=== PATIENT | female | born 1955 | race Caucasian/White ===

== ENCOUNTER → 2019-11-05 09:50 | Outpatient (CLI) | payer OTHER, SELFPAY ==
--- NOTE | ~2019-11-05 | MR_ITS ---
EXAMINATION: MR lumbar spine wo con EXAM DATE: 11/05/2019 10:28 INDICATION: Low back pain and right leg pain. TECHNIQUE: Multi-sequential, multiplanar MR images of the lumbar spine were obtained without contrast . Sagittal T1, T2, T2 fat saturation images. Axial T2 weighted images. Comparison is made to prior examination from 03/11/2015. FINDINGS: There is moderate disc disease at T11-12 and T12-L1 and L3-4, mild to moderate at the other lumbar levels. The conus medullaris terminates at the L1 level and has normal signal intensity and m orphology. There is 3 mm anterolisthesis L4 on L5. Small hemangioma in the S1 segment. Paraspinal so ft tissue is unremarkable. Level by level evaluation: T11-12: There is a large diffuse disc bulge asymmetric to the right, indenting the right anterior as pect of spinal cord without cord edema. Also central extrusion heading both inferiorly and superiorly . Facet arthropathy: Mild. Neural foraminal stenosis: No stenosis. Central canal stenosis: Mild to moderate. T12-L1: There is a moderate diffuse disc bulge. Facet arthropathy: Mild. Neural foraminal stenosis: No stenosis. Central canal stenosis: Mild. L1-L2: There is a moderate diffuse disc bulge. Facet arthropathy: Mild to moderate. Neural foraminal stenosis: Mild right. Central canal stenosis: Mild. L2-L3: There is a mild to moderate diffuse disc bulge. Facet arthropathy: Mild to moderate. Neural foraminal stenosis: Minimal bilateral. Central canal stenosis: Mild. L3-L4: There is a mild to moderate diffuse disc bulge. Facet arthropathy: Mild. Neural foraminal stenosis: Mild right. Central canal stenosis: Mild. L4-L5: There is a mild to moderate diffuse disc bulge. Facet arthropathy: Mild to moderate. Neural foraminal stenosis: Mild bilateral. Central canal stenosis: Mild to moderate. L5-S1: There is a mild diffuse disc bulge. Facet arthropathy: Mild to moderate. Neural foraminal stenosis: Mild to moderate bilateral. Central canal stenosis: Mild to moderate. Difficult to appreciate any significant interval change compared to prior study. IMPRESSION: 1. Overall moderate lumbar spondylosis. Reviewed, dictated and finalized at location A.
== END ==
PROVIDERS: Visit Provider Physical Medicine & Rehabilitation Pain Medicine
DX: M47.26 Other spondylosis with radiculopathy, lumbar region (principal)
CPT/HCPCS: 72148

== ENCOUNTER 2021-04-01 13:33 | Outpatient (CLI) | payer OTHER, SELFPAY ==
--- NOTE | ~2021-04-01 | MR_ITS ---
EXAMINATION: MR lumbar spine wo con DATE: 04/01/2021 14:26 INDICATION: Low back pain. TECHNIQUE: Magnetic resonance imaging (MRI) of the lumbar spine was performed without intravenous con trast. Sequences included sagittal T2-weighted FSE, sagittal T2-weighted FS FSE, sagittal T1-weighted FSE, and axial T2-weighted FSE. COMPARISON: Lumbar spine MRI 11/05/2019, chest CT 02/14/2017 FINDINGS: There is 9 degrees levocurvature of thoracolumbar spine. There is 3 mm anterolisthesis of L 4 on L5 and L5 on S1. There is mild chronic anterior wedging of T10 vertebral body. There is moderate ly decreased disc height from T12-L1 through L2-L3, severely decreased disc height at L3-L4, moderate ly decreased disc height at L4-L5, and mildly decreased disc height at L5-S1. There is a hemangioma i n S1. The distal spinal cord signal intensity is normal. The conus medullaris is at L1. The following disc levels are specifically discussed: T11-T12: The disc is bulging with superimposed left central extrusion. There is no facet joint osteoa rthritis. There is mild left neural foraminal stenosis. There is mild central canal stenosis with liat tral indentation of the spinal cord. T12-L1: The disc is bulging with superimposed right central extrusion. There is mild bilateral facet joint osteoarthritis. There is mild right neural foraminal stenosis. There is mild central canal sten osis. L1-L2: The disc is bulging and has an annular fissure. There is mild bilateral facet joint osteoarthr itis. There is mild bilateral neural foraminal stenosis. There is mild central canal stenosis. L2-L3: The disc is bulging and has an annular fissure. There is mild bilateral facet joint osteoarthr itis. There is mild bilateral neural foraminal stenosis. There is mild central canal stenosis. L3-L4: The disc is bulging with superimposed left subarticular zone extrusion with mass effect on lef t L4 nerve root in left lateral recess. There is mild bilateral facet joint osteoarthritis. There is mild bilateral neural foraminal stenosis. There is mild central canal stenosis. There is moderate nolberto nosis of left lateral recess. L4-L5: The disc is bulging and has an annular fissure. There is mild right facet joint osteoarthritis . There is ankylosis of left facet joint with moderate hypertrophy. There is mild left neural foramin al stenosis. There is mild central canal stenosis. L5-S1: The disc does not extend beyond the endplate margin. There is severe bilateral facet joint ost eoarthritis. There is mild bilateral neural foraminal stenosis. There is no central canal stenosis. IMPRESSION: 1. Severe lumbar spondylosis with worsened extrusion at L3-L4. Reviewed, dictated and finalized at location D. [employer]
== END 2021-04-01 13:34 | disposition home or self-care (01) ==
PROVIDERS: PCP Internal Medicine; Visit Provider Physician Assistant Medical
DX: M47.896 Other spondylosis, lumbar region (principal); M51.26 Other intervertebral disc displacement, lumbar region
CPT/HCPCS: 72148

== ENCOUNTER 2023-11-24 07:33 | Outpatient (CLI) | payer OTHER, SELFPAY ==
--- NOTE | ~2023-11-24 | CT_ITS ---
EXAMINATION: CT abdomen pelvis w con DATE: 11/24/2023 08:21 INDICATION: Abdominal pain TECHNIQUE: Computed tomography (CT) of the abdomen and pelvis was performed with 100 mL Omnipaque-350 intravenous contrast. Automated exposure control and iterative reconstruction technique were employe d. The dose-length product was 1514.43 mGy-cm. COMPARISON: 07/20/2014 FINDINGS: Lung bases are clear. Heart size normal. No pericardial or pleural effusion. Liver, gallbladder, sple en, pancreas and bilateral adrenal glands are normal. Small bilateral renal cysts largest on the left measuring 1.2 cm. There is moderate colonic diverticulosis with a sigmoid predominance. There is no adjacent inflammatory change to suggest diverticulitis. No bowel obstruction. The appendix is not vi sualizedand may be surgically absent with possible small appendiceal stump at the tip of the cecum. N o pericecal inflammatory change to suggest acute appendicitis. Bladder, anteverted uterus and bilater al adnexa are unremarkable. No free intraperitoneal gas or fluid. No pathologically enlarged abdomina l or pelvic lymphadenopathy. Severe lumbar spondylosis. IMPRESSION: 1. Moderate diverticulosis. No acute intra-abdominal/pelvic process. Reviewed, dictated and finalized at location A.
[2023-11-24 08:15] LABS: Estimated Glomerular Filt Rate > 60
== END 2023-11-24 07:34 | disposition home or self-care (01) ==
PROVIDERS: PCP Physician Assistant Medical; Visit Provider Physician Assistant Medical
DX: R10.9 Unspecified abdominal pain (principal); K57.30 Diverticulosis of large intestine without perforation or abscess without bleeding
CPT/HCPCS: 74177; Q9967

== ENCOUNTER 2024-01-27 10:50 | Outpatient (CLI) | payer OTHER, SELFPAY ==
--- NOTE | ~2024-01-27 | MR_ITS ---
EXAMINATION: MR ankle RT wo con DATE: 01/27/2024 11:34 INDICATION: Posterior tibial tendinitis, right leg. Right ankle pain. TECHNIQUE: Magnetic resonance imaging (MRI) of the right ankle was performed without intravenous cont rast. Sequences included sagittal PD-weighted FS FSE, sagittal PD-weighted FSE, coronal PD-weighted F S FSE, coronal PD-weighted FSE, axial PD-weighted FS FSE, and axial PD-weighted FSE. COMPARISON: None. FINDINGS: Medial ankle ligaments: There is thickening and increased signal involving the superficial component of deltoid ligament. The deep component of the deltoid ligament is obliterated by arthritis. Lateral ankle ligaments: There are changes of prior lateral ankle sprain. Anterior talofibular ligament demonstrates at least partial tear and heterotopic ossification. There is thickening and increased signal involving calcane ofibular ligament. Posterior talofibular ligament is intact. There is thickening and increased signal involving anterior and posterior tibiofibular ligaments with heterotopic ossification of anterior ti biofibular ligament. Tendons: There is mild peroneus longus tendinopathy. The anterior and medial ankle tendons are normal. Dolores s tendon is normal. Plantar fascia: There is thickening of central band of the plantar fascia, consistent with fasciitis. There is an ent hesophyte at the calcaneal attachment. Bones/other: There is severe osteoarthritis of tibiotalar joint with full-thickness cartilage loss, osteophytes, a nd edema-like marrow signal intensity. There is severe osteoarthritis of second tarsometatarsal joint and mild to moderate osteoarthritis of some of the other midfoot joints. Fluid: There are small ankle and subtalar joint effusions. IMPRESSION: 1. Normal posterior tibial tendon. 2. 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 Reviewed, dictated and finalized at location A. IMPRESSION: 1. Normal posterior tibial tendon. 2. Polyarticular osteoarthritis, severe at the ankle joint and second tarsometa tarsal joint.
== END 2024-01-27 10:51 | disposition home or self-care (01) ==
LOC: MICIMG 10:51
PROVIDERS: PCP Physician Assistant Medical; Visit Provider Orthopaedic Surgery
DX: M76.821 Posterior tibial tendinitis, right leg (principal); M19.071 Primary osteoarthritis, right ankle and foot
CPT/HCPCS: 73721

== ENCOUNTER 2024-05-01 09:48 | Outpatient (CLI) | payer OTHER, SELFPAY ==
--- NOTE | ~2024-05-01 | CT_ITS ---
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 Dose reduction technique was used on this scan by utilizing automated exposu re control and iterative reconstruction technique. The dose-length product (DLP) was 569.77 mGy-cm. Findings: There is no evidence of any significant mediastinal, hilar or axillary lymphadenopathy. There is evid ence of prior left axillary judd dissection. There is a tiny subcutaneous nodule near the place bein g measuring 4 mm, which could reflect a tiny sebaceous cyst. There is no filling defect in the pulmon andres arterial tree to suggest pulmonary embolus. There is no evidence of aortic dissection or aneurysm . There is no evidence of pleural or pericardial effusion. The lungs are clear. No pulmonary nodules or infiltrates are noted. Images through the upper abdomen reveal diffuse hepatic steatosis. Impression: 4 mm probable sebaceous cyst at the left axillary region at the location of the BB. Prior axillary judd dissection. No suspicious mass lesion identified. Clear lungs. Reviewed, dictated and finalized at location M. [employer] Impression: 4 mm probable sebaceous cyst at the left axillary region at the location of the BB. Prior axillary judd dissection. No suspicious mass lesion identified. Clear lungs.
--- NOTE | ~2024-05-01 | CT_ITS ---
EXAMINATION: CT ankle RT wo con DATE: 05/01/2024 10:30 INDICATION: Pain in right ankle and joints of right foot. TECHNIQUE: Computed tomography (CT) of the right ankle was performed without intravenous contrast. Au tomated exposure control and iterative reconstruction technique were employed. The dose-length produc t was 182.36 mGy-cm. COMPARISON: Right ankle MRI 01/27/2024, right foot radiograph 09/21/2023 FINDINGS: There is moderate hallux valgus. No fracture. There is severe osteoarthritis of ankle joint and mild osteoarthritis of subtalar joint and some of the midfoot joints. There is moderate osteoart hritis of fourth tarsometatarsal joint. There is severe osteoarthritis of second tarsometatarsal join t and first metatarsophalangeal joint. IMPRESSION: 1. Polyarticular osteoarthritis. 2. Moderate hallux valgus. Reviewed, dictated and finalized at location A. 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
[2024-05-01 10:14] LABS: Estimated Glomerular Filt Rate 55
== END 2024-05-01 09:49 | disposition home or self-care (01) ==
LOC: MICIMG 09:49
PROVIDERS: PCP Physician Assistant Medical; Visit Provider Physician Assistant Medical
DX: M19.071 Primary osteoarthritis, right ankle and foot (principal); M20.11 Hallux valgus (acquired), right foot
CPT/HCPCS: 71260; 73700; Q9967

== ENCOUNTER 2024-05-28 03:05 | Day surgery (SDC) | payer OTHER, SELFPAY ==
[2024-05-14 11:24] VITALS: BMI 42.8
--- OUTSIDE RECORDS SUMMARY | 2024-05-28 03:09 | XMS_ITS | Clinical Summary ---
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 Gender Identity Not on file Sexual Orientation Not on file Plan of Treatment Health Maintenance Due Date Last Done Comments DTAP/TDAP/TD VACCINES (1 - Tdap) 02/12/1975 BREAST CANCER SCREENING 1996 COLORECTAL SCREENING 02/12/2001 Colorectal Cancer Screening 02/12/2001 FIT-DNA Q 3 years 02/12/2001 FIT/FOBT Q 1 year 02/12/2001 Flex Sig/CT Colonography Q 5 years 02/12/2001 PNEUMOCOCCAL VACCINE 65+ YEARS (1 of 1 - PCV) 02/13/20 06 ZOSTER VACCINE (1 of 2) 02/12/2006 OSTEOPOROSIS SCREENING 02/12/2021 INFLUENZA VACCINE (#1) 2023 RSV VACCINE (60+ or ) (1 - 1-dose 75+ series) 02/12/2031 Care Teams Assistant Media Buyer Relationship Specialty Start Date [facility] [address] [id number] PCP - General 06/26/10
--- OUTSIDE RECORDS SUMMARY | 2024-05-28 03:09 | XMS_ITS | Referral Summary ---
Author Organization [facility] [address] Address [address] [place] [address] Care Team Providers Care Bait Man Name Role Phone Alessandro Delaney MD Unavailable [phone] Elaine Bunn Primary Care Provider [phone] Encounters Date Type Department Care Team Description 05/08/2024 Orders Only [facility] Orthopaedic Surgery [address] [place] [address] 2nd [address] [place] [address] Liset Campuzano RMA 05/02/2024 8:12 AM [employer] - 05/02/2024 11:59 PM [employer] Hospital Encounter [facility] ([facility]) [address] [place] [address] Diagnosis unknown Discharge Disposition: Discharge to home or self care 05/02/2024 8:03 AM [employer] - 05/02/2024 11:59 PM [employer] Hospital Encounter [facility] ([facility]) [address] [place] [address] Diagnosis unknown Discharge Disposition: Discharge to home or self care 05/02/2024 8:30 AM [employer] Office Visit [facility] Orthopaedic Surgery [address] [place] [address] 2nd [address] [place] [address] Jeferson Schneider MD Primary osteoarthritis, unspecified ankle and foot (Primary Dx); Pain in joint involving ankle and foot, unspecified laterality 04/25/2024 Telephone [facility] Orthopaedic Surgery [address] [place] [address] 2nd [address] [place] [address] Estrella Dhaliwal RN 04/25/2024 Orders Only [facility] Orthopaedic Surgery [id number] [place] [address] 2nd [address] [place] [phone] Jeferson Schneider MD Pain in joint involving ankle and foot, unspecified laterality (Primary Dx) 04/05/2024 1:30 PM [employer] Office Visit [facility] [address] [facility] [address] [facility] [place] [address] Alessandro Delaney MD Type 2 diabetes mellitus without complication, without long-term current use of insulin (CMS/HCC) (HCC) (Primary Dx); Mixed hyperlipidemia; Primary hypothyroidism; Essential hypertension; Vitamin D deficiency, unspecified 03/19/2024 6:36 PM [employer] - 03/19/2024 11:59 PM [employer] Hospital Encounter [facility] [address] [place] [address] Discharge Disposition: Discharge to home or self care 03/19/2024 10:57 AM [employer] - 03/19/2024 11:59 PM [employer] Hospital Encounter [facility] [address] [place] [address] Right foot pain Discharge Disposition: Discharge to home or self care 03/19/2024 11:00 AM [employer] - 03/19/2024 11:59 PM [employer] Hospital Encounter [facility] [address] [place] [address] Pain in joint involving ankle and foot, unspecified laterality Discharge Disposition: Discharge to home or self care 03/19/2024 11:00 AM [employer] Office Visit [facility] Orthopaedic Surgery [address] [place] [address] 2nd [address] [place] [phone] Jeferson Schneider MD Pain in joint involving ankle and foot, unspecified laterality (Primary Dx); Right foot pain; Primary osteoarthritis, unspecified ankle and foot from Last 3 Months Allergies Active Allergy Reactions Criticality Noted Date Comments Ibuprofen Shortness of breath High 02/14/2019 Meloxicam Shortness of breath High 11/28/2020 Naproxen Shortness of breath High 02/14/2019 Penicillins Rash High 02/14/2019 Medications montelukast (SINGULAIR) 10 mg tablet Take 1 tablet (10 mg total) by mouth daily 1 Active hydroCHLOROthia zide (HYDRODIURIL) 12.5 mg tablet Take 1 tablet (12.5 mg total) by mouth daily 1 Active moexipriL (UNIVASC) 7.5 mg tabletIndicatio ns:hypertension Take 2 tablets (15 mg total) by mouth daily 1 Active omeprazole (PriLOSEC) 20 mg capsule TAKE ONE CAPSULE BY MOUTH ONCE DAILY DIRECTED 1 Active PARoxetine (PAXIL) 20 mg tablet Take 1 tablet (20 mg total) by mouth daily 1 Active pilocarpine (SALAGEN) 5 mg tablet Take 1 tablet (5 mg total) by mouth 2 (two) times a day 1 Active acetaminophen (TYLENOL) 500 mg tablet Take 2 tablets (1,000 mg total) by mouth 2 (two) times a day Active HYDROcodone-cherry taminophen (NORCO) 5-325 mg per tabletIndicatio ns:Pain Take 1 tablet by mouth 3 (three) times a week Active levothyroxine (SYNTHROID) 125 mcg tablet Take 1 tablet (125 mcg total) by mouth 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 200 each 3 4 Active Additional Information Patient not taking.Reported on 04/05/2024 linaGLIPtin (TRADJENTA) 5 mg tabletIndicatio ns:type 2 diabetes mellitus Take 1 tablet (5 mg total) by mouth daily 90 tablet 3 4 11/02/19 25 Active losartan (COZAAR) 50 mg tablet Take 1 tablet (50 mg total) by mouth daily 4 Active atorvastatin (LIPITOR) 20 mg tablet Take 1 tablet (20 mg total) by mouth nightly at bedtime 4 Active polyethylene glycol (MIRALAX) 17 gram/dose bulk powder Take 17 g by mouth daily Active blood glucose diagnostic (Contour Next Test Strips) strip Test blood sugar twice daily 200 each 3 5 Active predniSONE (DELTASONE) 10 mg tablet TAKE 3 TABLETS DAILY FOR 3 DAYS, THEN 2 TABLETS DAILY FOR 3 DAYS, THEN 1 TABLET DAILY FOR 3 DAYS 5 Active Active Problems Problem Noted Date Diagnosed Date Acquired deformity of right ankle and foot 05/15 Chronic right sacroiliac pain 11/28/2020 Chronic right-sided low back pain with sciatica 11/28/2020 Type 2 diabetes mellitus wit hout complication, without long-term current use of insulin ([facility]) 07/03/2020 Overview (07/03/2020): Continue SGLT2 Essential hypertension 07/03/2020 Overview (07/03/2020): Same meds Mixed hyperlipidemia 07/03/2020 Overview (07/03/2020): Same meds Primary hypothyroidism 07/03/2020 Overview (07/03/2020): Check labs Social History Tobacco Use Types Packs/Day Years Used Date Smoking Tobacco: Never Smokeless Tobacco: Never AUDIT-C Answer Date Recorded Q1: How often do you have a drink containing alc ohol? Never 04/02/2021 Q2: How many drinks containi ng alcohol do you have on a typical day when you are drinking? 1 or 2 04/02/2021 Frequency of Binge Drinking Not on file 03/06 Comments No Sex and Gender Information Value Date Recorded Sex Assigned at Not on file Legal Sex Female 1:58 PM [employer] Gender Identity Not on file Sexual Orientation Not on file Last Filed Vital Signs Vital Sign Reading Time Taken Comments Blood Pressure 144/94 04/05/2024 1:51 PM [employer] Pulse 89 04/05/2024 1:51 PM [employer] Temperature 36.5 C (97.7 F) 09/14/2021 1:00 PM CDT Respiratory Rate 18 09/14/2021 1:55 PM CDT Oxygen Saturation 96% 04/05/2024 1:51 PM [employer] Inhaled Oxygen Concentration - - Weight 117 kg (258 lb) 04/05/2024 1:51 PM [employer] Height 162.6 cm (5' 4 ) 04/05/2024 1:51 PM [employer] Body Mass Index 44.29 04/05/2024 1:51 PM [employer] Plan of Treatment Upcoming Encounters Date Type Department Care Team (Late st Contact Info) Description 11/20/2024 Hospital Encounter [facility] Operating Room [facility]) [facility] [place] [address] [place] [address] [place] [address] Scheduled Procedures Name Priority Associated Diagnoses Date/Ti me ARTHRODESIS TRIPLE - FOOT Acquired deformity of right ankle and foot BONE GRAFT - ILIAC CREST Acquired deformity of right ankle and foot LENGTHENING TENDON - ACHILLES Acquired deformity of right ankle and foot OSTEOTOMY COTTON Acquired deformity of right ankle and foot Goals Goal Patient Goal Type Associated Problems Recent Progress Patient-Stated? Author CCM Chronic Pain Care Plan Chronic Care Management No change(01/27 7:40 AM CDT) No Ethel Bonilla RN Note: Problem: Chronic Pain Goals: 1. Minimize further functional decline 2. Maximize quality of life 3. Control pain Strategies: - Activity/exercise program recommendation - Conservative stepwise pain medicine strategy with multi-disciplinary approach - Recommend healthy lifestyle strategies and compensatory methods as needed Procedures Procedure Name Priority Date/Time Associated Diagnosis Comments MSK CT OUTSIDE CONSULT Routine 05/02/2024 8:12 AM [employer] Diagnosis unknown MSK MR OUTSIDE CONSULT Routine 05/02/2024 8:03 AM [employer] Diagnosis unknown VITAMIN D 25 HYDROXY Routine 04/23/2024 11:12 AM [employer] COPY(IES) SENT TO: Routine 04/23/2024 11:12 AM [employer] TSH Routine 04/23/2024 11:12 AM [employer] Type 2 diabetes mellitus without complication, without long-term current use of insulin ([facility]) (HCC) Mixed hyperlipidemia Primary hypothyroidism Essential hypertension Vitamin D deficiency, unspecified T4, FREE Routine 04/23/2024 11:12 AM [employer] Type 2 diabetes mellitus without complication, without long-term current use of insulin ([facility]) ([facility]) Mixed hyperlipidemia Primary hypothyroidism Essential hypertension Vitamin D deficiency, unspecified COMPREHENSIVE METABOLIC PANEL Routine 04/23/2024 11:12 AM [employer] Type 2 diabetes mellitus without complication, without long-term current use of insulin ([facility]) ([facility]) Mixed hyperlipidemia Primary hypothyroidism Essential hypertension Vitamin D deficiency, unspecified CBC WITH AUTO DIFFERENTIAL Routine 04/23/2024 11:12 AM [employer] Type 2 diabetes mellitus without complication, without long-term current use of insulin ([facility]) ([facility]) Mixed hyperlipidemia Primary hypothyroidism Essential hypertension Vitamin D deficiency, unspecified POCT HEMOGLOBIN A1C Routine 04/05/2024 2 :01 PM [employer] Type 2 diabetes mellitus without complication, without long-term current use of insulin ([facility]) ([facility]) MSK MR OUTSIDE REFERENCE Routine 03/19/2024 6:36 PM [employer] XR FOOT RIGHT 3 OR MORE VIEWS Schedule Routine, Read Routine (OP Routine) 03/19/2024 11:08 AM [employer] Right foot pain XR ANKLE RIGHT 3 OR MORE VIEWS Schedule Routine, Read Routine (OP Routine) 03/19/2024 11:08 AM [employer] Pain in joint involving ankle and foot, unspecified laterality POCT LIPID PANEL Routine 07/03/2020 9:33 AM CDT Mixed hyperlipidemia from Last 3 Months or Most Recently Relevant to Health Maintenance Results * MSK CT Outside Consult (05/02/2024 8:12 AM [employer]) Anatomical Region Laterality Modality N/A Computed Tomogra phy 05/02/2024 10:2 1 AM [employer] Impressions 05/02/2024 11:22 AM [employer] Severe right pes planovalgus with severe tibiotalar osteoarthritis, mild to moderate hindfoot osteoarthritis, and moderate midfoot osteoarthritis worst at the 2nd and 3rd tarsometatarsal joints. The findings, conclusions and recommendations within this report do not replace the initial findings, conclusions and recommendations made at the facility where the study was performed based upon the imaging and clinical condition at that time. Comparison with the prior report and clinical history is necessary. The provided images may or may not represent the [place] source data set and thus may contain changes that may lower the accuracy of this second-opinion interpretation. Dictated by: Alessandro Sharma D.O. The radiology attending physician has personally reviewed this study, and had reviewed and/or edited this written report and agrees with it. Electronically signed by: Sean Mendoza M.D. Narrative 05/02/2024 11:22 AM [employer] EXAMINATION: RADIOLOGY CONSULTATION ON OUTSIDE IMAGING STUDY STUDY INITIALLY PERFORMED: 05/01/2024 at [facility]. TYPE OF STUDY: Multiple CT images of the right ankle and hindfoot without contrast are provided at the time of this interpretation. CONTRAST ROUTE: No contrast was administered. The protocol was adequate to address the clinical question. The outside final report was not available at the time of this second opinion interpretation. TYPE OF CONSULTATION: Consult on outside imaging study with images submitted through Outside Image Sharing Service DATE OF CONSULTATION: 05/02/2024 10:03 AM HISTORY: Severe osteoarthritis, surgical planning COMPARISON: Radiographs 03/19/2024, outside MRI 01/27/2024 FINDINGS: Severe pes planovalgus. Hypu-jy-nrlz articulation of the tibiotalar joint with subchondral cysts and sclerosis. Loss of the medial clear space with rcmq-kb-jteu articulation between the medial talus and medial malleolus. Osteophytes and heterotopic ossification about the tibiotalar joint and malleoli. Small tibiotalar posterior subtalar joint effusions with a few loose bodies, largest measuring up to 13 mm in the flexor hallucis longus tendon sheath near its communication with the posterior tibiotalar joint. Mild to moderate subtalar osteoarthritis. Mild talonavicular and calcaneocuboid osteoarthritis. Polyarticular midfoot osteoarthritis, moderate at the 2nd and 3rd tarsometatarsal joint with small subchondral cysts. Severe 1st tarsometatarsal osteoarthritis with hallux valgus noted on prior radiographs. Plantar calcaneal spur. No acute fracture. Visualized tendons are grossly intact. No soft tissue collection. 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 Procedure Note Sean Mendoza MD - 05/02/2024 EXAMINATION: RADIOLOGY CONSULTATION ON OUTSIDE IMAGING STUDY STUDY INITIALLY PERFORMED: 05/01/2024 at [facility]. TYPE OF STUDY: Multiple CT images of the right ankle and hindfoot without contrast are provided at the time of this interpretation. CONTRAST ROUTE: No contrast was administered. The protocol was adequate to address the clinical question. The outside final report was not available at the time of this second opinion interpretation. TYPE OF CONSULTATION: Consult on outside imaging study with images submitted through Outside Image Sharing Service DATE OF CONSULTATION: 05/02/2024 10:03 AM HISTORY: Severe osteoarthritis, surgical planning COMPARISON: Radiographs 03/19/2024, outside MRI 01/27/2024 FINDINGS: Severe pes planovalgus. Pluw-pe-kfyd articulation of the tibiotalar joint with subchondral cysts and sclerosis. Loss of the medial clear space with bztw-la-bswu articulation between the medial talus and medial malleolus. Osteophytes and heterotopic ossification about the tibiotalar joint and malleoli. Small tibiotalar posterior subtalar joint effusions with a few loose bodies, largest measuring up to 13 mm in the flexor hallucis longus tendon sheath near its communication with the posterior tibiotalar joint. Mild to moderate subtalar osteoarthritis. Mild talonavicular and calcaneocuboid osteoarthritis. Polyarticular midfoot osteoarthritis, moderate at the 2nd and 3rd tarsometatarsal joint with small subchondral cysts. Severe 1st tarsometatarsal osteoarthritis with hallux valgus noted on prior radiographs. Plantar calcaneal spur. No acute fracture. Visualized tendons are grossly intact. No soft tissue collection. 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 IMPRESSION: Severe right pes planovalgus with severe tibiotalar osteoarthritis, mild to moderate hindfoot osteoarthritis, and moderate midfoot osteoarthritis worst at the 2nd and 3rd tarsometatarsal joints. The findings, conclusions and recommendations within this report do not replace the initial findings, conclusions and recommendations made at the facility where the study was performed based upon the imaging and clinical condition at that time. Comparison with the prior report and clinical history is necessary. The provided images may or may not represent the [place] source data set and thus may contain changes that may lower the accuracy of this second-opinion interpretation. Dictated by: Alessandro Sharma D.O. The radiology attending physician has personally reviewed this study, and had reviewed and/or edited this written report and agrees with it. Electronically signed by: Sean Mendoza M.D. us Jeferson Schneider MD IMG CT PROCEDURES Dorinda l Result * MSK MR Outside Consult (05/02/2024 8:03 AM [employer]) Anatomical Region Laterality Modality N/A Magnetic Resonan ce 05/02/2024 10:1 8 AM [employer] Impressions 05/02/2024 11:23 AM [employer] Severe right pes planovalgus with severe tibiotalar osteoarthritis, mild to moderate hindfoot osteoarthritis, moderate to severe midfoot osteoarthritis, and mild insertional tendinopathy of the posterior tibialis tendon. The findings, conclusions and recommendations within this report do not replace the initial findings, conclusions and recommendations made at the facility where the study was performed based upon the imaging and clinical condition at that time. Comparison with the prior report and clinical history is necessary. The provided images may or may not represent the [place] source data set and thus may contain changes that may lower the accuracy of this second-opinion interpretation. Dictated by: Alessandro Sharma D.O. The radiology attending physician has personally reviewed this study, and had reviewed and/or edited this written report and agrees with it. Electronically signed by: Sean Mendoza M.D. Narrative 05/02/2024 11:23 AM [employer] EXAMINATION: RADIOLOGY CONSULTATION ON OUTSIDE IMAGING STUDY STUDY INITIALLY PERFORMED: 01/27/2024 at [facility]. TYPE OF STUDY: Multiple MR images of the right ankle and hindfoot without contrast are provided at the time of this interpretation. CONTRAST ROUTE: No contrast was administered. The protocol was adequate to address the clinical question. The outside final report was available at the time of this second opinion interpretation. TYPE OF CONSULTATION: Consult on outside imaging study with images submitted through Outside Image Sharing Service DATE OF CONSULTATION: 05/02/2024 9:35 AM HISTORY: Severe ankle pain, posterior tibial tendinopathy COMPARISON: Radiographs 03/19/2024, 10/27/2020 FINDINGS: Medially, the posterior tibialis, flexor hallucis and flexor digitorum tendons are intact with mild thickening at the posterior tibialis insertion. There is an 11 mm body in the proximal flexor hallucis longus tendon sheath with small volume of fluid in the sheath. There is mild thickening of the superficial deltoid ligament. The spring ligament is attenuated. The tarsal tunnel is normal. Laterally, the peroneal tendons are intact with minimal fluid in the peroneal tendon sheath. The superior peroneal retinaculum is intact. The syndesmosis and syndesmotic ligaments are intact. Thickening of the anterior talofibular ligament with associated heterotopic ossification. Intact posterior talofibular ligament. Thickening of the calcaneofibular ligament. Posteriorly, the Achilles is normal. There is no retrocalcaneal bursitis. Intrinsically, the calcaneus is normal without evidence of a stress fracture. There is a multiloculated 16 mm ganglion cyst in the sinus Tarsi. Mild thickening of the central band of the plantar fascia suggestive of chronic plantar fasciitis. Anteriorly, the ankle extensors are normal. There is severe tibiotalar osteoarthritis with qmuu-zq-azde articulation and subchondral edema of the talar dome and tibial plafond. There is loss of medial clear space with rather bjrt-al-lafg articulation and subchondral edema in the medial malleolus and medial talar process heterotopic ossification and osteophytes about the tibiotalar joint. There is a small posterior tibiotalar and posterior subtalar joint effusion with synovitis. Severe pes planovalgus with polyarticular midfoot osteoarthritis, moderate to severe at the 2nd and 3rd tarsometatarsal joints with subchondral cysts and edema. 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 Fatty atrophy of the abductor digiti minimi muscle, suggestive of Kirkland's neuropathy. Procedure Note Sean Mendoza MD - 05/02/2024 EXAMINATION: RADIOLOGY CONSULTATION ON OUTSIDE IMAGING STUDY STUDY INITIALLY PERFORMED: 01/27/2024 at [facility]. TYPE OF STUDY: Multiple MR images of the right ankle and hindfoot without contrast are provided at the time of this interpretation. CONTRAST ROUTE: No contrast was administered. The protocol was adequate to address the clinical question. The outside final report was available at the time of this second opinion interpretation. TYPE OF CONSULTATION: Consult on outside imaging study with images submitted through Outside Image Sharing Service DATE OF CONSULTATION: 05/02/2024 9:35 AM HISTORY: Severe ankle pain, posterior tibial tendinopathy COMPARISON: Radiographs 03/19/2024, 10/27/2020 FINDINGS: Medially, the posterior tibialis, flexor hallucis and flexor digitorum tendons are intact with mild thickening at the posterior tibialis insertion. There is an 11 mm body in the proximal flexor hallucis longus tendon sheath with small volume of fluid in the sheath. There is mild thickening of the superficial deltoid ligament. The spring ligament is attenuated. The tarsal tunnel is normal. Laterally, the peroneal tendons are intact with minimal fluid in the peroneal tendon sheath. The superior peroneal retinaculum is intact. The syndesmosis and syndesmotic ligaments are intact. Thickening of the anterior talofibular ligament with associated heterotopic ossification. Intact posterior talofibular ligament. Thickening of the calcaneofibular ligament. Posteriorly, the Achilles is normal. There is no retrocalcaneal bursitis. Intrinsically, the calcaneus is normal without evidence of a stress fracture. There is a multiloculated 16 mm ganglion cyst in the sinus Tarsi. Mild thickening of the central band of the plantar fascia suggestive of chronic plantar fasciitis. Anteriorly, the ankle extensors are normal. There is severe tibiotalar osteoarthritis with wqfx-ko-hpof articulation and subchondral edema of the talar dome and tibial plafond. There is loss of medial clear space with rather qdhm-gl-pfra articulation and subchondral edema in the medial malleolus and medial talar process heterotopic ossification and osteophytes about the tibiotalar joint. There is a small posterior tibiotalar and posterior subtalar joint effusion with synovitis. Severe pes planovalgus with polyarticular midfoot osteoarthritis, moderate to severe at the 2nd and 3rd tarsometatarsal joints with subchondral cysts and edema. 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 Fatty atrophy of the abductor digiti minimi muscle, suggestive of Kirkland's neuropathy. IMPRESSION: Severe right pes planovalgus with severe tibiotalar osteoarthritis, mild to moderate hindfoot osteoarthritis, moderate to severe midfoot osteoarthritis, and mild insertional tendinopathy of the posterior tibialis tendon. The findings, conclusions and recommendations within this report do not replace the initial findings, conclusions and recommendations made at the facility where the study was performed based upon the imaging and clinical condition at that time. Comparison with the prior report and clinical history is necessary. The provided images may or may not represent the [place] source data set and thus may contain changes that may lower the accuracy of this second-opinion interpretation. Dictated by: Alessandro Sharma D.O. The radiology attending physician has personally reviewed this study, and had reviewed and/or edited this written report and agrees with it. Electronically signed by: Sean Mendoza M.D. us Jeferson Schneider MD IMG MRI PROCEDURES Fin al Result * COPY(IES) SENT TO: (04/23/2024 11:12 AM TAILINGS DAM PUMPER) COPY(IES) SENT TO: [facility] Comment: [facility] ADMN [address] [place] [id number] 04/23/2024 11:1 2 AM TAILINGS DAM PUMPER 04/23/2024 11:14 AM TAILINGS DAM PUMPER Narrative [facility] - 04/24/2024 8:15 AM TAILINGS DAM PUMPER FASTING:NO FASTING: NO us Alessandro Delaney MD LAB BLOOD ORDERABLES Fin al Result [facility] * CBC with auto differential (04/23/2024 11:12 AM TAILINGS DAM PUMPER) WBC 7.8 3.8 - 10.8 Thousand/u L [facility] RBC, POC 4.59 3.80 - 5.10 Million/uL [facility] Hgb 14.5 11.7 - 15.5 g/dL [facility] Hct 44.3 35.0 - 45.0 % [facility] MCV 96.5 80.0 - 100.0 fL [facility] MCH 31.6 27.0 - 33.0 pg [facility] MCHC 32.7 32.0 - 36.0 g/dL [facility] Comment: For adults, a slight decrease in the calculated MCHC value (in the range of 30 to 32 g/dL) is most likely not clinically significant; however, it should be interpreted with caution in correlation with other red cell parameters and the patient's clinical condition. Rdw 13.6 11.0 - 15.0 % [facility] Platelets 212 140 - 400 Thousand/u L [facility] MPV 10.3 7.5 - 12.5 fL [facility] Neutrophils, abs 5,795 1,500 - 7,800 cells/uL [facility] Lymphocytes, abs 1,373 850 - 3,900 cells/uL [facility] Monocyte abs 429 200 - 950 cells/uL [facility] Eosinophils, abs 140 15 - 500 cells/uL [facility] Basophils, abs 62 0 - 200 cells/uL [facility] Neutrophils 74.3 % [facility] Lymphocyte pct 17.6 % [facility] Monocytes 5.5 % [facility] Eosinophils 1.8 % [facility] Basophils 0.8 % [facility] Blood 04/23/2024 11:1 2 AM TAILINGS DAM PUMPER 04/23/2024 11:14 AM TAILINGS DAM PUMPER Narrative [facility] - 04/24/2024 8:15 AM TAILINGS DAM PUMPER FASTING:NO FASTING: NO us Alessandro Delaney MD LAB BLOOD ORDERABLES Fin al Result [facility] [address] [place] [id number] * Vitamin D 25 hydroxy (04/23/2024 11:12 AM TAILINGS DAM PUMPER) Pathologist [facility] Vitamin D 25-OH 51 30 - 100 ng/mL [facility] Comment: Vitamin D Status 25-OH Vitamin D: Deficiency: <20 ng/mL Insufficiency: 20 - 29 ng/mL Optimal: > or = 30 ng/mL For 25-OH Vitamin D testing on patients on D2-supplementation and patients for whom quantitation of D2 and D3 fractions is required, the QuestAssureD(TM) 25-OH VIT D, (D2,D3), LC/MS/MS is recommended: order code 59692 (patients >2yrs). See Note 1 Note 1 For additional information, please refer to http://education.Littlecast/faq/NWL793 (This link is being provided for informational/ educational purposes only.) 04/23/2024 11:1 2 AM TAILINGS DAM PUMPER 04/23/2024 11:14 AM TAILINGS DAM PUMPER Narrative [facility] - 04/24/2024 8:15 AM TAILINGS DAM PUMPER FASTING:NO FASTING: NO Alessandro Delaney MD LAB BLOOD ORDERABLES Fin al Result Performing Organization Address [facility]/ZIP Co de Phone Number [facility] [address] [place] [address] * TSH (04/23/2024 11:12 AM TAILINGS DAM PUMPER) [facility] TSH 3.17 0.40 - 4.50 mIU/L [facility] Blood 04/23/2024 11:1 2 AM TAILINGS DAM PUMPER 04/23/2024 11:14 AM TAILINGS DAM PUMPER Narrative [facility] - 04/24/2024 8:15 AM TAILINGS DAM PUMPER FASTING:NO FASTING: NO Alessandro Delaney MD LAB BLOOD ORDERABLES Fin al Result Performing Organization Address [facility]/ZIP Co de Phone Number [facility] [address] [place] [address] * T4, free (04/23/2024 11:12 AM TAILINGS DAM PUMPER) [facility] Free T4 1.3 0.8 - 1.8 ng/dL [facility] Blood 04/23/2024 11:1 2 AM TAILINGS DAM PUMPER 04/23/2024 11:14 AM TAILINGS DAM PU[employer]ER Narrative [facility] - 04/24/2024 8:15 AM TAILINGS DAM PUMPER FASTING:NO FASTING: NO us Alessandro Delaney MD LAB BLOOD ORDERABLES Fin al Result [facility] [address] [address], [place] [address] * (ABNORMAL) Comprehensive metabolic panel (04/23/2024 11:12 AM TAILINGS DAM PUMPER) Pathologist [facility] Glucose 116 65 - 139 mg/dL [facility] Comment: Non-fasting reference interval BUN 13 7 - 25 mg/dL [facility] Creatinine 0.89 0.50 - 1.05 mg/dL [facility] eGFR 71 > OR = 60 mL/min/1.7 3m2 [facility] BUN/creat ratio SEE NOTE: 6 - 22 (calc) [facility] Comment: Not Reported: BUN and Creatinine are within reference range. Sodium 141 135 - 146 mmol/L [facility] Potassium, pl 4.6 3.5 - 5.3 mmol/L [facility] Chloride 100 98 - 110 mmol/L [facility] CO2 33(H) 20 - 32 mmol/L [facility] Calcium 9.6 8.6 - 10.4 mg/dL [facility] Protein, sr 7.1 6.1 - 8.1 g/dL [facility] Albumin 4.5 3.6 - 5.1 g/dL [facility] GLOBULIN 2.6 1.9 - 3.7 g/dL (calc) [facility] Alb/glob ratio 1.7 1.0 - 2.5 (calc) [facility] Bilirubin, total 0.5 0.2 - 1.2 mg/dL [facility] Alk phos 67 37 - 153 U/L [facility] AST 16 10 - 35 U/L [facility] ALT (SGPT) 21 6 - 29 U/L [facility] Blood 04/23/2024 11:1 2 AM TAILINGS DAM PU[employer]ER 04/23/2024 11:14 AM TAILINGS DAM PU[employer]ER Narrative [facility] - 04/24/2024 8:15 AM TAILINGS DAM PU[employer]ER FASTING:NO FASTING: NO Alessandro Delaney MD LAB BLOOD ORDERABLES Fin al Result [facility] [address] [place] [id number] * POCT hemoglobin A1c (04/05/2024 2:01 PM TAILINGS DAM PUMPER) Hemoglobin A1C, POC 6.7 4.0 - 5.6 % Blood 04/05/2024 2:01 PM [employer]ILINGS [employer]ER Alessandro Delaney MD POINT OF CARE TEST ORDER FRANCO Final Result * MSK MR Outside Reference (03/19/2024 6:36 PM TAILINGS DAM PUMPER) Anatomical Region Laterality Modality N/A Magnetic Resonan ce 05/02/2024 4:15 PM [employer]ILINGS DAM PU[employer]ER Addenda Addendum by Kavon Abebe MD on 05/02/2024 4:15 PM TAILINGS DAM PUMPER A consult was requested on 05/02/2024 date. Please see new accession #[id number] for the consult interpretation. Edited by: Felicity Admin/Cow Tender Dominique Electronically signed by: Kavon Abebe M.D. Impressions 03/19/2024 6:36 PM TAILINGS DAM PUMPER These images are for Reference purposes only and have not been reviewed by [facility] Radiology. There will be no report generated by a [facility] Radiologist. Narrative 03/19/2024 6:36 PM TAILINGS DAM PUMPER EXAMINATION: Images For Reference Purposes Only Procedure Note Kavon Aebbe MD - 03/19/2024 EXAMINATION: Images For Reference Purposes Only IMPRESSION:These images are for Reference purposes only and have not beenreviewed by [facility] Radiology. There will be no reportgenerated by a [facility] Radiologist. Jeferson Schneider MD [facility] MRI PROCEDURES Andry savannah Result - Final * XR Foot Right 3 or More Views (03/19/2024 11:08 AM TAILINGS DAM PUMPER) Anatomical Region Laterality Modality Lower Extremities, Foot Right Computed Radiography 03/19/2024 11:1 4 AM TAILINGS DAM PU[employer]ER Impressions 03/19/2024 11:14 AM TAILINGS DAM PUMPER 1. 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 Electronically signed by: Rosita Pham MD Narrative 03/19/2024 11:14 AM TAILINGS DAM PUMPER EXAMINATION: XR ANKLE RIGHT 3 OR MORE VIEWS, XR FOOT RIGHT 3 OR MORE VIEWS HISTORY: Right foot/ankle pain. FINDINGS: Comparison to 10/27/2020. Severe talocrural osteoarthritis. Medial translation of the talus with respect to the tibia. No abnormal widening of the mortise/syndesmosis. Pes planovalgus. Moderate to severe midfoot osteoarthritis most prominent at the 2nd tarsometatarsal hallux valgus with metatarsus primus varus and moderate 1st metatarsophalangeal osteophyte arthritis. Small plantar calcaneal spur. Procedure Note Rosita Pham MD - 03/19/2024 EXAMINATION: XR ANKLE RIGHT 3 OR MORE VIEWS, XR FOOT RIGHT 3 OR MORE VIEWS HISTORY: Right foot/ankle pain. FINDINGS: Comparison to 10/27/2020. Severe talocrural osteoarthritis. Medial translation of the talus with respect to the tibia. No abnormal widening of the mortise/syndesmosis. Pes planovalgus. Moderate to severe midfoot osteoarthritis most prominent at the 2nd tarsometatarsal hallux valgus with metatarsus primus varus and moderate 1st metatarsophalangeal osteophyte arthritis. Small plantar calcaneal spur. IMPRESSION: 1. 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 Electronically signed by: Rosita Pham MD Jeferson Schneider MD IMG XR PROCEDURES Dorinda l Result * XR Ankle Right 3+ View (03/19/2024 11:08 AM TAILINGS DAM PUMPER) Anatomical Region Laterality Modality Lower Extremities, Ankle Right Compute d Radiography 03/19/2024 11:1 4 AM TAILINGS DAM PUMPER Impressions 03/19/2024 11:14 AM TAILINGS DAM PUMPER 1. 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 Electronically signed by: Rosita Pham MD Narrative 03/19/2024 11:14 AM TAILINGS DAM PUMPER EXAMINATION: XR ANKLE RIGHT 3 OR MORE VIEWS, XR FOOT RIGHT 3 OR MORE VIEWS HISTORY: Right foot/ankle pain. FINDINGS: Comparison to 10/27/2020. Severe talocrural osteoarthritis. Medial translation of the talus with respect to the tibia. No abnormal widening of the mortise/syndesmosis. Pes planovalgus. Moderate to severe midfoot osteoarthritis most prominent at the 2nd tarsometatarsal hallux valgus with metatarsus primus varus and moderate 1st metatarsophalangeal osteophyte arthritis. Small plantar calcaneal spur. Procedure Note Rosita Pham MD - 03/19/2024 EXAMINATION: XR ANKLE RIGHT 3 OR MORE VIEWS, XR FOOT RIGHT 3 OR MORE VIEWS HISTORY: Right foot/ankle pain. FINDINGS: Comparison to 10/27/2020. Severe talocrural osteoarthritis. Medial translation of the talus with respect to the tibia. No abnormal widening of the mortise/syndesmosis. Pes planovalgus. Moderate to severe midfoot osteoarthritis most prominent at the 2nd tarsometatarsal hallux valgus with metatarsus primus varus and moderate 1st metatarsophalangeal osteophyte arthritis. Small plantar calcaneal spur. IMPRESSION: 1. 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 Electronically signed by: Rosita Pham MD Jeferson Schneider MD [facility] XR PROCEDURES Dorinda l Result * POCT lipid panel (07/03/2020 9:33 AM CDT) Cholesterol, POC 265 mg/dL HDL, POC 72 mg/dL Triglycerides, POC 199 mg/dL LDL Cholesterol POC 154 mg/dL Chol/HDL Ratio, POC 3.7 Non-HDL Cholesterol, POC 194 mg/dL Cholesterol Total, POC 265 mg/dL Capillary blood 07/03/2020 9 :33 AM CDT Alessandro Delaney MD POINT OF CARE TEST ORDER FRANCO Final Result from Last 3 Months or Most Recently Relevant to Health Maintenance Insurance CHOICE PLUS CHOICE PLUS CHOICE PLUS Care Teams Bait Man Relationship Specialty Start Date End Date Elaine Bunn PA [address] [place] [id number] PCP - General Family Practice 04/18/23 Alessandro Delaney MD [address] [address] Consulting Physician Endocrinology Diabetes & Metabolism 05/21/20
--- OUTSIDE RECORDS SUMMARY | 2024-05-28 03:09 | XMS_ITS | Encounter Summary ---
Author Organization [facility] Healthcare Address [address] [place] [address] Care Team Providers Care Phlebotomist Medical Lab Assistant Name Role Phone Alessandro Delaney MD Unavailable [phone] Alessandro Delaney MD Primary Care Provider + Elaine Bunn Primary Care Provider [phone] Reason for Visit * Reason Onset Date Comments giving info 11/28/2020 Encounter Details Date Type Department Care Team (Late Contact Info) Description 11/28/2020 Telephone [facility] [address] [facility] [address] [place], [place] [id number] Esmer Miramontes MD [address] [place] [address] giving info Social History Tobacco Use Types Packs/Day Years Used Date Smoking Tobacco: Never Smokeless Tobacco: Never Comments Unknown Sex and Gender Information Value Date Recorded Sex Assigned at Not on file 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 Gender Identity Not on file Sexual Orientation Not on file documented as of this encounter Plan of Treatment Upcoming Encounters Date Type Department Care Team (Late Contact Info) Description 11/20/2024 Hospital Encounter [facility] [address] [place] [address] [place] [address] [place] [address] Scheduled Procedures Name Priority Associated Diagnoses Date/Ti me ARTHRODESIS TRIPLE - FOOT Acquired deformity of right ankle and foot BONE GRAFT - ILIAC CREST Acquired deformity of right ankle and foot LENGTHENING TENDON - ACHILLES Acquired deformity of right ankle and foot OSTEOTOMY COTTON Acquired deformity of right ankle and foot documented as of this encounter Goals Goal Patient Goal Type Associated Problems [...] lifestyle strategies and compensatory methods as needed documented as of this encounter Visit Diagnoses Not on filedocumented in this encounter Care Teams Phlebotomist Medical Lab Assistant Relationship Specialty Start Date End Date Alessandro Delaney MD [address] [employer] [employer] [place] [address] PCP - General Endocrinology Diabetes & Metabolism 09/18/20 04/17/23 Elaine Bunn PA [address] [place] [address] PCP - General Family Practice 04/18/23 Alessandro Delaney MD [address] [place] [address] Consulting Physician Endocrinology Diabetes & Metabolism 05/21/20 documented as of this encounter
--- OUTSIDE RECORDS SUMMARY | 2024-05-28 03:09 | XMS_ITS | Clinical Summary ---
Author Organization [facility] Address [address] [place] [address] Care Team Providers Care Spring Up Supervisor Name Role Phone Gautam Loco MD Primary Care Provider [phone] Allergies Active Allergy Reactions Criticality Noted Date Comments Naproxen Shortness of Breath High 02/14/2019 Ibuprofen Shortness of Breath High 02/14/2019 Penicillins Rash High 02/14/2019 Medications montelukast 10 MG tablet Take 10 mg by mouth daily. Active benazepril-hydr ochlorthiazide 10-12.5 MG tablet Take 1 tablet by mouth daily. Active omeprazole 20 MG capsule Take 20 mg by mouth daily. Active paroxetine 20 MG tablet Take 20 mg by mouth every morning. Active atorvastatin 10 MG tablet Take 10 mg by mouth daily. Active levothyroxine 125 MCG tablet Take 125 mcg by mouth every morning. Active trazodone 50 MG tablet Take 50 mg by mouth nightly at bedtime. Active Canagliflozin (INVOKANA OR) Take 75 mg by mouth daily. Active cyclobenzaprine 5 MG tablet Take 5 mg by mouth nightly. Active pilocarpine 5 MG tablet Take 5 mg by mouth 2 (two) times a day. Active vitamin B-12 (CYANOCOBALAMIN ) 1000 mcg tablet Take 2,000 mcg by mouth daily. Active vitamin D3, cholecalciferol , 1000 UNIT Tab tabletIndicatio ns:tuesday, sd,tuesday Take 2,000 Units by mouth 3 (three) times a week. Indications: tuesday, sd,tuesday Active Active Problems Problem Noted Date Diagnosed Date Hx of decompressive lumbar laminectomy 2 Chronic right sacroiliac joint pain 11/28/2020 Immunizations Name Administration Dates Next Due MODERNA COVID-19 (12+) MRNA, LNP-S, PF, 100 MCG/ 0.5 ML DOSE 05/30/2020,05/02/2020 Social History Tobacco Use Types Packs/Day Years Used Date Smoking Tobacco: Never Smokeless Tobacco: Never Alcohol Use Standard Drinks/Week Comments No 0 (1 standard drink = 0.6 oz pur e alcohol) AUDIT-C Answer Date Recorded Frequency of Alcohol Consumption Never 02/14/2019 Average Number of Drinks Not on file 019 Frequency of Binge Drinking Not on file 02/02 Comments No Sex and Gender Information Value Date Recorded Sex Assigned at Not on file Legal Sex 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 Gender Identity Not on file Sexual Orientation Not on file Last Filed Vital Signs Vital Sign Reading Time Taken Comments Blood Pressure 140/60 12/09/2019 8:15 PM CDT Pulse 68 12/09/2019 8:45 PM CDT Temperature 35.9 C (96.6 F) 12/09/2019 8:10 PM CDT Respiratory Rate 20 12/09/2019 8:45 PM CDT Oxygen Saturation 97% 12/09/2019 8:45 PM CDT Inhaled Oxygen Concentration - - Weight 103.4 kg (228 lb) 12/09/2019 8:10 PM CDT Height 162.6 cm (5' 4 ) 12/09/2019 8:10 PM CDT Body Mass Index 39.14 12/09/2019 8:10 PM CDT Plan of Treatment Health Maintenance Due Date Last Done Comments Colorectal Cancer Screening Colonoscopy (10 Years) 1955 Hepatitis C 02/12/1974 DTaP, Tdap and Td Vaccines ( 1 - Tdap) 02/12/1975 Mammogram Screening 1996 Dexa Scan (General) 02/12/2021 Pneumococcal Vaccine: 65+ Years (1 of 1 - PCV) 02/12/2021 COVID-19 Vaccine (3 - 2023-2 5 season) 2023 05/30/2020, 05/02/2020 Influenza Adult (#1) 2024 01/25/2019 RSV Immunization or 60+ Years (1 - 1-dose 75+ series) 02/12/2031 Zoster Vaccines Completed 02/12/2018, 10/24/2017 Meningococcal B Vaccine Aged Out No l onger eligible based on patient's age to complete this topic Meningococcal Vaccine Aged Out No shamar sheri eligible based on patient's age to complete this topic RSV Immunizations Under 20 Months Aged Out No longer eligible b ased on patient's age to complete this topic 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
--- OUTSIDE RECORDS SUMMARY | 2024-05-28 03:09 | XMS_ITS | Encounter Summary ---
Author Organization [facility] Healthcare Address [address] [place] [address] Care Team Providers Care [employer] Repairer Name Role Phone Alessandro Delaney MD Unavailable [phone] Alessandro Delaney MD Primary Care Provider + Elaine Bunn Primary Care Provider [phone] Reason for Visit * Reason Onset Date Comments REQUESTING CALL BACK 12/22/2020 Encounter Details Date Type Department Care Team (Late st Contact Info) Description 12/22/2020 Telephone [facility] [address] [facility] [address] [place], [place] [id number] Esmer Miramontes MD [address] [place] [address] REQUESTING CALL BACK Social History Tobacco Use Types Packs/Day Years Used Date Smoking Tobacco: Never Smokeless Tobacco: Never Comments Unknown Sex and Gender Information Value Date Recorded Sex Assigned at Not on file Legal Sex Female 1:58 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 Gender Identity Not on file Sexual Orientation Not on file documented as of this encounter Plan of Treatment Upcoming Encounters Date Type Department Care Team (Late Contact Info) Description 11/20/2024 Hospital Encounter [facility] [address] [place] [address] [place] [address] [place] [address] Scheduled Procedures Name Priority Associated Diagnoses Date/Ti [...] on filedocumented in this encounter Care Teams [employer] Repairer Relationship Specialty Start Date End Date Alessandro Delaney MD [address] [facility] [address] [place] [address] PCP - General Endocrinology Diabetes & Metabolism 09/18/20 04/17/23 Elaine Bunn PA [address] [place] [address] PCP - General Family Practice 04/18/23 Alessandro eDlaney MD [address] [facility] [address] [place] [address] Consulting Physician Endocrinology Diabetes & Metabolism 05/21/20 documented as of this encounter
--- OUTSIDE RECORDS SUMMARY | 2024-05-28 03:09 | XMS_ITS | Clinical Summary ---
Author Organization [facility] [address] Address [address] [place] [address] Care Team Providers Care Absorption And Adsorption Engineer Name Role Phone Alessandro Delaney MD Unavailable [phone] Elaine Bunn Primary Care Provider [phone] Allergies Active Allergy Reactions Criticality Noted Date [...] 1 tablet (125 mcg total) by mouth powder compounder before breakfast Active docusate sodium (COLACE) 100 mg capsuleIndicati ons:constipatio n Take 1 capsule (100 mg total) by mouth 3 (three) times a day as needed for constipation Active cholecalciferol (VITAMIN D-3) 5,000 unit tablet Take 1 tablet (5,000 Units total) by mouth daily Active cyanocobalamin 2,000 mcg tablet Take 1 tablet (2,000 mcg total) by mouth daily Active lancets 30 gauge [facility] [place] One Touch Delica Lancets - Use to [...] complication, without long-term current use of insulin ([facility]) 07/03/2020 Overview (07/03/2020): Continue SGLT2 Essential hypertension 07/03/2020 Overview (07/03/2020): Same meds Mixed hyperlipidemia 07/03/2020 Overview (07/03/2020): Same meds Primary hypothyroidism 07/03/2020 Overview (07/03/2020): Check labs Encounters Date Type Department Care Team Description 05/08/2024 Orders Only [facility] [address] [place] [address] Floor [address] [place] [phone] Liset Campuzano Aida 05/02/2024 8:30 AM EQUITY MANAGER Office Visit [facility] [address] [place] [address] [place] [phone] Jeferson Schneider MD Primary osteoarthritis, unspecified ankle and foot (Primary Dx); Pain in joint involving ankle and foot, unspecified laterality 05/02/2024 8:12 AM EQUITY MANAGER - 05/02/2024 11:59 PM EQUITY MANAGER Hospital Encounter [facility] [address] [place] [address] Diagnosis unknown Discharge Disposition: Discharge to home or self care 05/02/2024 8:03 AM EQUITY MANAGER - 05/02/2024 11:59 PM EQUITY MANAGER Hospital Encounter [facility] [address] [place] [address] Diagnosis unknown Discharge Disposition: Discharge to home or self care 04/25/2024 Telephone [facility] [address] [place] [address] Floor [address] [place] [phone] Estrella Dhaliwal, RN 04/25/2024 Orders Only [facility] [address] [place] [address] Floor [address] [place] [phone] Jeferson Schneider MD Pain in joint involving ankle and foot, unspecified laterality (Primary Dx) 04/05/2024 1:30 PM EQUITY MANAGER Office Visit [facility] [address] [facility] [address] [place] [address] Alessandro Delaney MD Type 2 diabetes mellitus without complication, without long-term current use of insulin (CMS/HCC) (HCC) (Primary Dx); Mixed hyperlipidemia; Primary hypothyroidism; Essential hypertension; Vitamin D deficiency, unspecified 03/19/2024 6:36 PM EQUITY MANAGER - 03/19/2024 11:59 PM EQUITY MANAGER Hospital Encounter [facility] [address] [place] [address] Discharge Disposition: Discharge to home or self care 03/19/2024 11:00 AM EQUITY MANAGER - 03/19/2024 11:59 PM EQUITY MANAGER Hospital Encounter [facility] [address] [place] [address] Pain in joint involving ankle and foot, unspecified laterality Discharge Disposition: Discharge to home or self care 03/19/2024 11:00 AM EQUITY MANAGER Office Visit [facility] [id number] [place] [address] 2nd Floor [address] [place] [address] Jeferson Schneider MD Pain in joint involving ankle and foot, unspecified laterality (Primary Dx); Right foot pain; Primary osteoarthritis, unspecified ankle and foot 03/19/2024 10:57 AM EQUITY MANAGER - 03/19/2024 11:59 PM EQUITY MANAGER Hospital Encounter [facility] [address] [place] [address] Right foot pain Discharge Disposition: Discharge to home or self care from Last 3 Months Surgical History Surgery Date Site/Laterality Comments MASTECTOMY Left APPENDECTOMY SECTION Medical History Medical History Date Comments Thyroid disease Breast cancer (HCC) Diabetes mellitus (HCC) Asthma Hypertension Arthritis ANTONY (obstructive sleep apnea) Low back pain HLD (hyperlipidemia) Family History Medical History Relation Name Comments Lung cancer Father COPD Mother Relation Name Status Comments Father Mother Social History Tobacco Use Types Packs/Day Years [...] on file Legal Sex Female 1:58 PM EQUITY MANAGER Gender Identity Not on file Sexual Orientation Not on file Obstetrics History Last Filed Vital Signs Vital Sign Reading Time Taken Comments Blood Pressure 144/94 04/05/2024 1:51 PM EQUITY MANAGER Pulse 89 04/05/2024 1:51 PM EQUITY MANAGER Temperature 36.5 C (97.7 F) 09/14/2021 1:00 PM CDT Respiratory Rate 18 09/14/2021 1:55 PM CDT Oxygen Saturation 96% 04/05/2024 1:51 PM EQUITY MANAGER Inhaled Oxygen Concentration - - Weight 117 kg (258 lb) 04/05/2024 1:51 PM EQUITY MANAGER Height 162.6 cm (5' 4 ) 04/05/2024 1:51 PM EQUITY MANAGER Body Mass Index 44.29 04/05/2024 1:51 PM EQUITY MANAGER Plan of Treatment Upcoming Encounters Date Type Department Care Team (Late st Contact Info) Description 11/20/2024 Hospital Encounter [facility] Operating Room [facility] [address] [place] [phone] [place] [address] [place] [phone] Scheduled Procedures Name Priority Associated Diagnoses Date/Ti me ARTHRODESIS TRIPLE - FOOT Acquired deformity of right ankle and foot BONE GRAFT - ILIAC CREST Acquired deformity of right ankle and foot LENGTHENING TENDON - ACHILLES Acquired deformity of right ankle and foot OSTEOTOMY COTTON Acquired deformity of right ankle and foot Health Maintenance Due Date Last Done Comments Albumin Creatinine Ratio, Urine 1956 Breast Cancer Screening-Mammogram 1956 Colon Cancer Screening-Colonoscopy 1955 Depression Screening 1956 Hepatitis C Screening 1956 Osteoporosis Screening-Bone Density Scan 1956 Dilated Eye Exam 1956 Foot Exam 1956 DTaP/Tdap/Td Vaccine (1 - Tdap) 02/12/1967 Pneumococcal vaccine 65+ (2 of 2 - PCV) 04/11/2014 04/11/2013 Well Visit 65+ 02/12/2021 Lipid Panel 07/03/2021 07/03/2020 Fall Risk Assessment 04/02/2022 04/02/2021, 01/31/20 21 Covid-19 Vaccine (2023-2 5 season) 2023 05/30/2020, 05/02/2020 Influenza Vaccine (#1) 2023 9, 01/07/2016, 01/02/2013 Hemoglobin A1C 10/03/2024 04/05/2024, 10/03, 04/18/2023, Additional history exists eGFR 04/23/2025 04/23/2024, 04/18/2023 Hepatitis B Screening Completed 12/05/2002 , 07/09/2002, 05/23/2002 Zoster Vaccine Completed 02/12/2018, 10/24/2017 Goals Goal Patient Goal Type Associated Problems [...] CT OUTSIDE CONSULT Routine 05/02/2024 8:12 AM EQUITY MANAGER Diagnosis unknown MSK MR OUTSIDE CONSULT Routine 05/02/2024 8:03 AM EQUITY MANAGER Diagnosis unknown VITAMIN D 25 HYDROXY Routine 04/23/2024 11:12 AM EQUITY MANAGER COPY(IES) SENT TO: Routine 04/23/2024 11:12 AM EQUITY MANAGER TSH Routine 04/23/2024 11:12 AM EQUITY MANAGER Type 2 diabetes mellitus without complication, without long-term current use of insulin (CMS/HCC) (HCC) Mixed hyperlipidemia Primary hypothyroidism Essential hypertension Vitamin D deficiency, unspecified T4, FREE Routine 04/23/2024 11:12 AM EQUITY MANAGER Type 2 diabetes mellitus without complication, without long-term current use of insulin ([facility]) (HCC) Mixed hyperlipidemia Primary hypothyroidism Essential hypertension Vitamin D deficiency, unspecified COMPREHENSIVE METABOLIC PANEL Routine 04/23/2024 11:12 AM EQUITY MANAGER Type 2 diabetes mellitus without complication, without long-term current use of insulin ([facility]) (HCC) Mixed hyperlipidemia Primary hypothyroidism Essential hypertension Vitamin D deficiency, unspecified CBC WITH AUTO DIFFERENTIAL Routine 04/23/2024 11:12 AM EQUITY MANAGER Type 2 diabetes mellitus without complication, without long-term current use of insulin ([facility]) (HCC) Mixed hyperlipidemia Primary hypothyroidism Essential hypertension Vitamin D deficiency, unspecified POCT HEMOGLOBIN A1C Routine 04/05/2024 2 :01 PM EQUITY MANAGER Type 2 diabetes mellitus without complication, without long-term current use of insulin ([facility]) (HCC) MSK MR OUTSIDE REFERENCE Routine 03/19/2024 6:36 PM EQUITY MANAGER XR FOOT RIGHT 3 OR MORE VIEWS Schedule Routine, Read Routine (OP Routine) 03/19/2024 11:08 AM EQUITY MANAGER Right foot pain XR ANKLE RIGHT 3 OR MORE VIEWS Schedule Routine, Read Routine (OP Routine) 03/19/2024 11:08 AM EQUITY MANAGER Pain in joint involving ankle and foot, unspecified laterality POCT LIPID PANEL Routine 07/03/2020 9:33 AM CDT Mixed hyperlipidemia from Last 3 Months or Most Recently Relevant to Health Maintenance Results * MSK CT Outside Consult (05/02/2024 8:12 AM EQUITY MANAGER) Anatomical Region Laterality Modality N/A Computed Tomogra phy 05/02/2024 10:2 1 AM EQUITY MANAGER Impressions 05/02/2024 11:22 AM EQUITY MANAGER Severe right pes planovalgus with severe tibiotalar [...] images may or may not represent the kl[place]ah source data set and thus may contain changes that may lower the accuracy of this second-opinion interpretation. Dictated by: Alessandro Sharma D.O. The radiology attending physician has personally reviewed this study, and had reviewed and/or edited this written report and agrees with it. Electronically signed by: Sean Mendoza M.D. Narrative 05/02/2024 11:22 AM EQUITY MANAGER EXAMINATION: RADIOLOGY CONSULTATION ON OUTSIDE IMAGING STUDY STUDY INITIALLY PERFORMED: 05/01/2024 at [facility]. TYPE OF STUDY: Multiple CT images of [...] outside MRI 01/27/2024 FINDINGS: Severe pes planovalgus. Zejt-lb-cvww articulation of the tibiotalar joint with subchondral cysts and sclerosis. Loss of the medial clear space with klmy-bj-ghqp articulation between the medial talus and medial [...] IMAGING STUDY STUDY INITIALLY PERFORMED: 05/01/2024 at [facility]. TYPE OF STUDY: Multiple CT images of [...] outside MRI 01/27/2024 FINDINGS: Severe pes planovalgus. Zpec-gi-best articulation of the tibiotalar joint with subchondral cysts and sclerosis. Loss of the medial clear space with cqku-yy-ipcc articulation between the medial talus and medial [...] images may or may not represent the kluti kaah source data set and thus may contain [...] MSK MR Outside Consult (05/02/2024 8:03 AM EQUITY MANAGER) Anatomical Region Laterality Modality N/A Magnetic Resonan ce 05/02/2024 10:1 8 AM EQUITY MANAGER Impressions 05/02/2024 11:23 AM EQUITY MANAGER Severe right pes planovalgus with severe tibiotalar [...] images may or may not represent the kluti kaah source data set and thus may contain changes that may lower the accuracy of this second-opinion interpretation. Dictated by: Alessandro Sharma D.O. The radiology attending physician has personally reviewed this study, and had reviewed and/or edited this written report and agrees with it. Electronically signed by: Sean Mendoza M.D. Narrative 05/02/2024 11:23 AM EQUITY MANAGER EXAMINATION: RADIOLOGY CONSULTATION ON OUTSIDE IMAGING STUDY STUDY INITIALLY PERFORMED: 01/27/2024 at [facility]. TYPE OF STUDY: Multiple MR images of [...] normal. There is severe tibiotalar osteoarthritis with xkiq-az-wnep articulation and subchondral edema of the talar dome and tibial plafond. There is loss of medial clear space with rather oxtt-li-rqoj articulation and subchondral edema in the medial [...] IMAGING STUDY STUDY INITIALLY PERFORMED: 01/27/2024 at [facility]. TYPE OF STUDY: Multiple MR images of [...] normal. There is severe tibiotalar osteoarthritis with meah-ys-nabk articulation and subchondral edema of the talar dome and tibial plafond. There is loss of medial clear space with rather ffwn-xu-rhtk articulation and subchondral edema in the medial [...] images may or may not represent the kluti kaah source data set and thus may contain changes that may lower the accuracy of this second-opinion interpretation. Dictated by: Alessandro Sharma D.O. The radiology attending physician has personally reviewed this study, and had reviewed and/or edited this written report and agrees with it. Electronically signed by: Sean Mendoza M.D. Jeferson Schneider MD IMG MRI PROCEDURES Fin al Result * COPY(IES) SENT TO: (04/23/2024 11:12 AM EQUITY MANAGER) COPY(IES) SENT TO: [facility] Comment: [facility] [address] [place] [phone] 04/23/2024 11:1 2 AM EQUITY MANAGER 04/23/2024 11:14 AM EQUITY MANAGER Narrative [facility] - 04/24/2024 8:15 AM EQUITY MANAGER FASTING:NO FASTING: NO Alessandro Delaney MD LAB BLOOD ORDERABLES Fin al Result [facility] * CBC with auto differential (04/23/2024 11:12 AM EQUITY MANAGER) WBC 7.8 3.8 - 10.8 Thousand/u L [...] [facility] Blood 04/23/2024 11:1 2 AM EQUITY MANAGER 04/23/2024 11:14 AM EQUITY MANAGER Narrative [facility] - 04/24/2024 8:15 AM EQUITY MANAGER FASTING:NO FASTING: NO Alessandro Delaney MD LAB BLOOD ORDERABLES Fin al Result [facility] [address] [place] [address] * Vitamin D 25 hydroxy (04/23/2024 11:12 AM EQUITY MANAGER) Pathologist [facility] Vitamin D 25-OH 51 30 - 100 [...] D, (D2,D3), LC/MS/MS is recommended: order code 80477 (patients >2yrs). See Note 1 Note 1 For additional information, please refer to http://education.Samba.me/faq/YKX953 (This link is being provided for informational/ educational purposes only.) 04/23/2024 11:1 2 AM EQUITY MANAGER 04/23/2024 11:14 AM EQUITY MANAGER Narrative [facility] - 04/24/2024 8:15 AM EQUITY MANAGER FASTING:NO FASTING: NO Alessandro Delaney MD LAB BLOOD ORDERABLES Fin al Result Performing Organization Address [facility] de Phone Number [facility] [address] [place] [address] * TSH (04/23/2024 11:12 AM EQUITY MANAGER) TSH 3.17 0.40 - 4.50 mIU/L [facility] Blood 04/23/2024 11:1 2 AM EQUITY MANAGER 04/23/2024 11:14 AM EQUITY MANAGER Narrative [facility] - 04/24/2024 8:15 AM EQUITY MANAGER FASTING:NO FASTING: NO Alessandro Delaney MD LAB BLOOD ORDERABLES Fin al Result Performing Organization Address [facility] de Phone Number [facility] [address] [place] [address] * T4, free (04/23/2024 11:12 AM EQUITY MANAGER) Free T4 1.3 0.8 - 1.8 ng/dL [facility] Blood 04/23/2024 11:1 2 AM EQUITY MANAGER 04/23/2024 11:14 AM EQUITY MANAGER Narrative [facility] - 04/24/2024 8:15 AM EQUITY MANAGER FASTING:NO FASTING: NO Alessandro Delaney MD LAB BLOOD ORDERABLES Fin al Result Performing Organization Address [facility]/ZIP Co de Phone Number [facility] [address] [address] [place], [place] [address] * (ABNORMAL) Comprehensive metabolic panel (04/23/2024 11:12 AM EQUITY MANAGER) Glucose 116 65 - 139 mg/dL [facility] Blood 04/23/2024 11:1 2 AM EQUITY MANAGER 04/23/2024 11:14 AM EQUITY MANAGER Narrative [facility] - 04/24/2024 8:15 AM EQUITY MANAGER FASTING:NO FASTING: NO Alessandro Delaney MD LAB BLOOD ORDERABLES Fin al Result [facility] [address] [place] [phone] * POCT hemoglobin A1c (04/05/2024 2:01 PM EQUITY MANAGER) Hemoglobin A1C, POC 6.7 4.0 - 5.6 % Blood 04/05/2024 2:01 PM EQUITY MANAGER Alessandro Delaney MD POINT OF CARE TEST ORDER FRANCO Final Result * MSK MR Outside Reference (03/19/2024 6:36 PM EQUITY MANAGER) Anatomical Region Laterality Modality N/A Magnetic Resonan ce 05/02/2024 4:15 PM EQUITY MANAGER Addenda Addendum by Kavon Abebe MD on 05/02/2024 4:15 PM EQUITY MANAGER A consult was requested on 05/02/2024 date. Please see new accession #[id number] for the consult interpretation. Edited by: Felicity Admin/Traffic Personnel Supervisor Dominique Electronically signed by: Kavon Abebe M.D. Impressions 03/19/2024 6:36 PM EQUITY MANAGER These images are for Reference purposes only and have not been reviewed by [facility]. There will be no report generated by a [facility] Radiologist. Narrative 03/19/2024 6:36 PM EQUITY MANAGER EXAMINATION: Images For Reference Purposes Only Procedure Note Kavon Abebe MD - 03/19/2024 EXAMINATION: Images For Reference Purposes Only IMPRESSION:These images are for Reference purposes only and have not beenreviewed by [facility]. There will be no reportgenerated by a [facility] Radiologist. Jeferson Schneider MD IMG MRI PROCEDURES Andry savannah Result - Final * XR Foot Right 3 or More Views (03/19/2024 11:08 AM EQUITY MANAGER) Anatomical Region Laterality Modality Lower Extremities, Foot Right Computed Radiography 03/19/2024 11:1 4 AM EQUITY MANAGER Impressions 03/19/2024 11:14 AM EQUITY MANAGER 1. 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 Electronically signed by: Rosita Pham MD Narrative 03/19/2024 11:14 AM EQUITY MANAGER EXAMINATION: XR ANKLE RIGHT 3 OR MORE [...] Ankle Right 3+ View (03/19/2024 11:08 AM EQUITY MANAGER) Anatomical Region Laterality Modality Lower Extremities, Ankle Right Compute d Radiography 03/19/2024 11:1 4 AM EQUITY MANAGER Impressions 03/19/2024 11:14 AM EQUITY MANAGER 1. 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 Electronically signed by: Rosita Pham MD Narrative 03/19/2024 11:14 AM EQUITY MANAGER EXAMINATION: XR ANKLE RIGHT 3 OR MORE [...] IMG XR PROCEDURES Dorinda l Result * POCT [...] PLUS CHOICE PLUS CHOICE PLUS Care Teams Absorption And Adsorption Engineer Relationship Specialty Start Date End Date Elaine Bunn PA [facility] [place] [address] PCP - General Family Practice 04/18/23 Alessandro Delaney MD [address] [address] Consulting Physician Endocrinology Diabetes & Metabolism 05/21/20
[2024-05-28 07:55] VITALS: BP 141/75; PULSE 86; RESP 18; TEMP 36.2; O2SAT 98
[2024-05-28] MEDS: LACTATED RINGERS 1,000 ML 150 ML IV CONT (08:08)
[2024-05-28 08:11] LABS: Glucose Point of Care 156 mg/dl (65-105)
--- NOTE | 2024-05-28 08:12 | P.PNAN_ITS ---
Anes - Initial Pre Proc Eval Procedure: Operation Date: 05/28/24 09:00 Proposed Procedures p Colonoscopy - Tommy Espinoza MD Date/Time: 05/28/24 08:12 Surgeon: Tommy Espinoza MD Pre Op Diagnosis: abd pain, other signs/symptoms of digestive system Patient Data Age: 69 Gender: F Height: 1.63 m Weight: 113.6 kg Last Vital Signs Temp 97.1 F L 05/28/24 07:55 Pulse 86 05/28/24 07:55 Resp 18 05/28/24 07:55 BP 141/75 H 05/28/24 07:55 Pulse Ox 98 05/28/24 07:55 O2 Del Method Room Air 05/28/24 07:55 Allergies Allergy/AdvReac Type Severity Reaction Status Date / Time ibuprofen AdvReac Severe Difficulty Verified 05/28/24 07:52 Breathing naproxen (From Aleve) AdvReac Severe Flushing Verified 05/28/24 07:52 Penicillins AdvReac Severe Rash Verified 05/28/24 07:52 Home Medications ?Medication ?Instructions ?Recorded ?Confirmed ?Type cholecalciferol (vitamin D3) 50 50 mcg PO DAILY 04/14/20 05/28/24 History mcg (2,000 unit) capsule albuterol sulfate 90 mcg/actuation 1 - 2 inh inhalation Q4-6H PRN 06/20/23 05/14/24 Rx aerosol inhaler shortness of breath or wheezing #8.5 grams trazodone 50 mg tablet 50 mg PO BID #180 tabs 11/11/23 05/28/24 Rx linagliptin 5 mg tablet (Tradjenta) 5 mg PO QAM 12/28/23 05/28/24 History mecobalamin (vitamin B12) 1,000 1,000 mcg PO DAILY 01/27/24 05/28/24 History mcg chewable tablet pilocarpine HCl 5 mg tablet 5 mg PO BID #180 tabs 02/13/24 05/28/24 Rx montelukast 10 mg tablet 10 mg PO DAILY #90 tabs 03/26/24 05/28/24 Rx hydrocodone 5 mg-acetaminophen 325 1 tablet PO Q6H #30 tabs 04/23/24 05/14/24 Rx mg tablet losartan 50 mg tablet 50 mg PO DAILY #90 tabs 04/23/24 05/28/24 Rx atorvastatin 20 mg tablet 20 mg PO QHS #90 tabs 05/14/24 05/28/24 Rx hydrochlorothiazide 12.5 mg tablet 12.5 mg PO DAILY #90 tabs 05/14/24 05/28/24 Rx omeprazole 20 mg capsule,delayed 20 mg PO DAILY 05/14/24 05/28/24 History release paroxetine HCl 20 mg tablet 20 mg PO DAILY #90 tabs 05/14/24 05/28/24 Rx levothyroxine 125 mcg tablet 125 mcg PO DAILY #90 tabs 05/22/24 05/28/24 Rx Laboratory Tests 05/28/24 08:06 POC Capillary Glucose 156 H mg/dl (65-105) Patient hx anesthesia problems: none Family hx anesthesia problems: none Results Review: All pre-operative results and documents have been reviewed as part of the pre- operative evaluation. [facility] Past Medical History Medical History Alternating constipation and diarrhea Right sided abdominal pain GERD (gastroesophageal reflux disease) Diabetes mellitus type II, controlled Contact dermatitis Posterior tibial tendinitis of right lower extremity Arthritis of ankle joint History of breast cancer Vitamin D deficiency Arthritis Hair loss Hypothyroidism Diarrhea Constipation Hypertension High cholesterol Asthma Dry mouth Wears glasses Light headedness ANTONY (obstructive sleep apnea) Hallux valgus, acquired, bilateral Pes planus of both feet 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 Surgical History Surgical History History of eyelid surgery History of mastectomy 2007 History of 1985, 1990 History of appendectomy 1982 Family History Family History Father Family history of cataracts Hypertension Cerebrovascular accident Family history of diabetes mellitus in first degree relative Family history of lung cancer Family history of coronary artery disease Mother Hypertension Cerebrovascular accident Family history of chronic obstructive pulmonary disease Family history of emphysema Sibling Cerebrovascular accident Other Arthritis Asthma Bladder cancer Breast cancer Family history of congestive heart failure High cholesterol Social History Social History Social History: 04/23/24 very confident with medical forms Smoking status: Never smoker Alcohol intake: current Alcohol use details: 4-5 drinks per year Substance use: never Substance use type: does not use Do You Feel Safe in your Home?: Yes Lack of Transportation: No Lack of Food: Never True Current Housing: I Have Housing Concerned About Future Housing: No Difficulty Paying Gas/Electric Bills: No Difficulty Paying for Meds: No Currently Unemployed: No Education: Bachelor's Degree Difficulty w/ Childcare or Family Care: No Living arrangements: with family Occupation/Education: retired Gender identity (if verbalized by the patient): Female Sexual Orientation (if Verbalized by the Patient): Straight or Heterosexual Anes - Eval Final PreProcedure Day of Procedure 05/28/24 08:12 Patient weight: morbidly obese Lungs: normal air movement Airway: Mallampati scale class II Neurological: alert and oriented Last oral intake: >/= 8 hours ASA classification: III Emergent: no Anesthetic plan: proceed Anesthesia type and monitoring: general GIVS and standard monitoring Results Review: All pre-operative results and documents have been reviewed as part of the pre- operative evaluation. HTN, hyperlipidemia, ANTONY on CPAP, hypothyroidism. Informed Consent: The patient's anesthetic plan and its attendant risks and benefits were discussed with the patient/family/POA. Questions were solicited and answers provided to the satisfaction of the patient/family/POA.
--- NOTE | 2024-05-28 08:25 | PM.HPGS ---
History of Present Illness History of Present Illness Consent: Risks, benefits, and alternatives have been discussed and questions answered. Patient agrees to proceed with procedure. Chief complaint: abd pain, other signs/symptoms of digestive system Narrative: Ginette Dash is a 69 year old female here for screening colonoscopy, last one 2010, also alternating constipation and diarrhea. Review of Systems Review of Systems: All systems reviewed & are unremarkable except as noted in HPI and below PMFSH Past Medical History Medical History (Updated 05/28/24 @ 08:26 by Tommy Espinoza MD) Colon cancer screening Alternating constipation and diarrhea Right sided abdominal pain GERD (gastroesophageal reflux disease) Diabetes mellitus type II, controlled Contact dermatitis Posterior tibial tendinitis of right lower extremity Arthritis of ankle joint History of breast cancer Vitamin D deficiency Arthritis Hair loss Hypothyroidism Diarrhea Constipation Hypertension High cholesterol Asthma Dry mouth Wears glasses Light headedness ANTONY (obstructive sleep apnea) Hallux valgus, acquired, bilateral Pes planus of both feet 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 Surgical History Surgical History History of eyelid surgery History of mastectomy 2007 History of 1985, 1990 History of appendectomy 1982 Family History Family History Father Family history of cataracts Hypertension Cerebrovascular accident Family history of diabetes mellitus in first degree relative Family history of lung cancer Family history of coronary artery disease Mother Hypertension Cerebrovascular accident Family history of chronic obstructive pulmonary disease Family history of emphysema Sibling Cerebrovascular accident Other Arthritis Asthma Bladder cancer Breast cancer Family history of congestive heart failure High cholesterol Social History Social History Social History: 04/23/24 very confident with medical forms Smoking status: Never smoker Alcohol intake: current Alcohol use details: 4-5 drinks per year Substance use: never Substance use type: does not use Do You Feel Safe in your Home?: Yes Lack of Transportation: No Lack of Food: Never True Current Housing: I Have Housing Concerned About Future Housing: No Difficulty Paying Gas/Electric Bills: No Difficulty Paying for Meds: No Currently Unemployed: No Education: Bachelor's Degree Difficulty w/ Childcare or Family Care: No Living arrangements: with family Occupation/Education: retired Gender identity (if verbalized by the patient): Female Sexual Orientation (if Verbalized by the Patient): Straight or Heterosexual Meds Home Medications and Allergies Home Medications ?Medication ?Instructions ?Recorded ?Confirmed ?Type cholecalciferol (vitamin D3) 50 50 mcg PO DAILY 04/14/20 05/28/24 History mcg (2,000 unit) capsule albuterol sulfate 90 mcg/actuation 1 - 2 inh inhalation Q4-6H PRN 06/20/23 05/14/24 Rx aerosol inhaler shortness of breath or wheezing #8.5 grams trazodone 50 mg tablet 50 mg PO BID #180 tabs 11/11/23 05/28/24 Rx linagliptin 5 mg tablet (Tradjenta) 5 mg PO QAM 12/28/23 05/28/24 History mecobalamin (vitamin B12) 1,000 1,000 mcg PO DAILY 01/27/24 05/28/24 History mcg chewable tablet pilocarpine HCl 5 mg tablet 5 mg PO BID #180 tabs 02/13/24 05/28/24 Rx montelukast 10 mg tablet 10 mg PO DAILY #90 tabs 03/26/24 05/28/24 Rx hydrocodone 5 mg-acetaminophen 325 1 tablet PO Q6H #30 tabs 04/23/24 05/14/24 Rx mg tablet losartan 50 mg tablet 50 mg PO DAILY #90 tabs 04/23/24 05/28/24 Rx atorvastatin 20 mg tablet 20 mg PO QHS #90 tabs 05/14/24 05/28/24 Rx hydrochlorothiazide 12.5 mg tablet 12.5 mg PO DAILY #90 tabs 05/14/24 05/28/24 Rx omeprazole 20 mg capsule,delayed 20 mg PO DAILY 05/14/24 05/28/24 History release paroxetine HCl 20 mg tablet 20 mg PO DAILY #90 tabs 05/14/24 05/28/24 Rx levothyroxine 125 mcg tablet 125 mcg PO DAILY #90 tabs 05/22/24 05/28/24 Rx Allergies Allergy/AdvReac Type Severity Reaction Status Date / Time ibuprofen AdvReac Severe Difficulty Verified 05/28/24 07:52 Breathing naproxen (From Aleve) AdvReac Severe Flushing Verified 05/28/24 07:52 Penicillins AdvReac Severe Rash Verified 05/28/24 07:52 Vital Signs Vital Signs - 24 hr 05/28/24 07:55 Temperature 97.1 F L Pulse Rate 86 Respiratory Rate 18 Blood Pressure 141/75 H Pulse Oximetry 98 Oxygen Delivery Room Air Exam Const: General: comfortable and no acute distress HENMT: Face/Nose/Sinus: Normal nares present Eyes: General: appearance normal, both eyes and all related structures Neck: Neck: no JVD Resp: Auscultation: clear to auscultation bilaterally Cardio: Rate: regular rate Rhythm: regular rhythm GI: Inspection: non-distended GI Palp: Yes Soft to palpation Skin: General skin exam: normal color Neuro: Speech: normal speech Extrem: General: normal to inspection Psych: Mental Status: mental status grossly normal Assessment and Plan Assessment and plan (1) Alternating constipation and diarrhea: Code(s): R19.8 - Other specified symptoms and signs involving the digestive system and abdomen Status: Acute (2) Colon cancer screening: Code(s): Z12.11 - Encounter for screening for malignant neoplasm of colon Status: Acute Assessment and Plan: colonoscopy
[2024-05-28 08:38] VITALS: BP 96/50; PULSE 76; RESP 20; O2SAT 95
[2024-05-28 08:48] VITALS: BP 102/52; PULSE 74; RESP 20; O2SAT 96
[2024-05-28 08:58] VITALS: BP 107/58; PULSE 69; RESP 20; O2SAT 96
== END 2024-05-28 09:07 | disposition home or self-care (01) ==
PROVIDERS: PCP Physician Assistant Medical; Referring Provider Nurse Practitioner Family; Visit Provider Internal Medicine Gastroenterology
PROC: 0DJD8ZZ Inspection of Lower Intestinal Tract, Via Natural or Artificial Opening Endoscopic (ICD-10-PCS; CPT 45378; principal; 2024-05-28 09:00)
DX: Z12.11 Encounter for screening for malignant neoplasm of colon (principal); D12.3 Benign neoplasm of transverse colon; K57.30 Diverticulosis of large intestine without perforation or abscess without bleeding; K64.8 Other hemorrhoids; R19.8 Other specified symptoms and signs involving the digestive system and abdomen; Z79.84 Long term (current) use of oral hypoglycemic drugs; E11.9 Type 2 diabetes mellitus without complications; E66.01 Morbid (severe) obesity due to excess calories; Z68.41 Body mass index [BMI] 40.0-44.9, adult
CPT/HCPCS: 45385; 82948; 88305; J2704; J7120

== ENCOUNTER 2024-12-27 19:26 | Emergency (ER) | payer OTHER, SELFPAY ==
--- NOTE | ~2024-12-27 | XR_ITS ---
XR knee LT min 4V 12/27/2024 19:41 Indication: Left knee pain Procedure: 4 views left knee Comparison: No prior studies for comparison. Findings: No fracture, subluxation or dislocation. No significant joint effusion. No foreign bodies. Mild tricompartment osteoarthritis. Impression: 1: Mild tricompartment osteoarthritis. Reviewed, dictated and finalized at location O. Impression: 1: Mild tricompartment osteoarthritis.
--- NOTE | 2024-12-27 19:27 | ED.LOWEXIN ---
HPI - Extremity Injury (Lower) General Chief Complaint: Extremity Injury, Lower Stated Complaint: LT Knee Injury Time Seen by Provider: 12/27/24 19:26 Source: patient Mode of arrival: ambulatory Limitations: no limitations History of Present Illness HPI Narrative: Ginette is a 61-year-old female patient presenting to the clinic today with complaints of left knee pain/injury. She reports she initially injured it 1 week ago when she fell and re-injured it again today when getting into the car. She reports she put her right leg in 1st in the car and twisted and felt a pop with severe pain to the left knee. Reports pain is to the lateral and anterior knee joint. Has no pain with sitting but has pain with ambulation/bearing weight. Is unable to fully extend her leg without pain in her knee. Rates pain 8/10 when bearing weight. Took Tylenol this morning. Has not taken anything for pain since reinjuring her knee. Related Data Home Medications ?Medication ?Instructions ?Recorded ?Confirmed ?Last Taken ?Type cholecalciferol (vitamin D3) 50 50 mcg PO DAILY 04/14/20 10/23/24 05/27/24 History mcg (2,000 unit) capsule linagliptin 5 mg tablet (Tradjenta) 5 mg PO QAM 12/28/23 10/23/24 05/27/24 History mecobalamin (vitamin B12) 1,000 1,000 mcg PO DAILY 01/27/24 10/23/24 05/27/24 History mcg chewable tablet tirzepatide 2.5 mg/0.5 mL 2.5 mg subcut WEEKLY 10/23/24 10/23/24 Unknown History subcutaneous pen injector (Mounjaro) hydroxychloroquine 200 mg tablet 200 mg PO BID 12/10/24 Unknown History (Plaquenil) Allergies Allergy/AdvReac Type Severity Reaction Status Date / Time ibuprofen AdvReac Severe Difficulty Verified 12/27/24 19:46 Breathing naproxen (From Aleve) AdvReac Severe Flushing Verified 12/27/24 19:46 Penicillins AdvReac Severe Rash Verified 12/27/24 19:46 Review of Systems Review of Systems: Pertinent positives per HPI. Patient denies any fever, chills, rash, headache, visual changes, dizziness, cough, runny nose, sore throat, shortness of breath, chest pain, palpitations, nausea, vomiting, diarrhea, constipation, abdominal pain, or any urinary issues. [facility] Past Medical History Medical History Colon cancer screening Alternating constipation and diarrhea Right sided abdominal pain GERD (gastroesophageal reflux disease) Diabetes mellitus type II, controlled Contact dermatitis Posterior tibial tendinitis of right lower extremity Arthritis of ankle joint History of breast cancer Vitamin D deficiency Arthritis Hair loss Hypothyroidism Diarrhea Constipation Hypertension High cholesterol Asthma Dry mouth Wears glasses Light headedness ANTONY (obstructive sleep apnea) Hallux valgus, acquired, bilateral Pes planus of both feet 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 Surgical History Surgical History History of eyelid surgery History of mastectomy 2007 History of 1985, 1990 History of appendectomy 1982 Family History Family History Father Family history of cataracts Hypertension Cerebrovascular accident Family history of diabetes mellitus in first degree relative Family history of lung cancer Family history of coronary artery disease Mother Hypertension Cerebrovascular accident Family history of chronic obstructive pulmonary disease Family history of emphysema Sibling Cerebrovascular accident Other Arthritis Asthma Bladder cancer Breast cancer Family history of congestive heart failure High cholesterol Social History Social History Social History: 04/23/24 very confident with medical forms 10/23/24 patient declined SDOH Smoking status: Never smoker Alcohol intake: current Alcohol use details: a few drinks a year Substance use: never Substance use type: does not use Do You Feel Safe in your Home?: Yes Lack of Transportation: No Lack of Food: Never True Current Housing: I Have Housing Concerned About Future Housing: No Difficulty Paying Gas/Electric Bills: No Difficulty Paying for Meds: No Currently Unemployed: No Education: Bachelor's Degree Difficulty w/ Childcare or Family Care: No Living arrangements: with family Occupation/Education: retired Gender identity (if verbalized by the patient): Female Sexual Orientation (if Verbalized by the Patient): Straight or Heterosexual Spiritual care concerns: No Comments At the time of my signature, I reviewed and agree with the nursing past medical, surgical, social, and family history. There is no relevant family history pertinent to the patient complaint. Exam Narrative: General: Well-developed, morbidly obese, in no apparent distress Head: Normocephalic, atraumatic. Cardio: Regular rate and rhythm, s1 and s2 normal, no murmur appreciated. Resp: Clear to auscultation bilaterally, no rhonchi, rales, wheezing or rubs. Musculoskeletal: No deformity, tender to palpation over the lateral knee joint, full flexion and extension of the left knee over the lateral knee, crepitus palpable with flexion and extension, tenderness with valgus and varus testing without laxity, grossly normal range of motion, muscle strength strong and equal, peripheral pulse strong, no edema, no cyanosis, walking with a wheeled walker Course Course Emergency Course: Portions of this record may have been created with voice recognition software. Level of Care: Express Care Visit Vital Signs Vital signs: Vital Signs Temperature 36.2 C L 12/27/24 19:44 Pulse Rate 83 12/27/24 19:44 Respiratory Rate 18 12/27/24 19:44 Blood Pressure 141/63 H 12/27/24 19:44 Pulse Oximetry 98 12/27/24 19:44 Oxygen Delivery Room Air 12/27/24 19:44 Temperature 36.2 C L 12/27/24 19:44 Pulse Rate 83 12/27/24 19:44 Respiratory Rate 18 12/27/24 19:44 Blood Pressure 141/63 H 12/27/24 19:44 Pulse Oximetry 98 12/27/24 19:44 Oxygen Delivery Room Air 12/27/24 19:44 Vital signs reviewed MDM - Extremity Injury (Lower) MDM Narrative Medical decision making narrative: At the time of visit patient is resting comfortably on the exam table. Patient appears to be nontoxic. Complaints of left knee pain/injury. She reports she initially injured it 1 week ago when she fell and re-injured it again today when getting into the car. She reports she put her right leg in 1st in the car and twisted and felt a pop with severe pain to the left knee. Reports pain is to the lateral and anterior knee joint. Has no pain with sitting but has pain with ambulation/bearing weight. Is unable to fully extend her leg without pain in her knee. Rates pain 8/10 when bearing weight. Took Tylenol this morning. Has not taken anything for pain since reinjuring her knee. On exam tender to palpation over the left lateral knee joint, full flexion and extension of the left knee over the lateral knee, crepitus palpable with flexion and extension, tenderness with valgus and varus testing without laxity. Diagnostics: X-ray of the left knee was performed and was negative for any acute fracture or effusion. Plan: I suspect patient has a lateral collateral ligament sprain. Cameron wrap was given in the clinic today. Sensation, circulation, and motion within normal limits after application of the Cameron wrap. Recommend rice therapy. May apply Aspercreme, blue emu, lidocaine, or icy Hot to the affected area to help alleviate pain, may take Tylenol for pain. Follow-up with PCP in 5-7 days if symptoms persist-you may need an MRI for further evaluation of the ligament. Supportive measures were discussed with the patient and they voiced understanding discharge instructions and agrees to treatment plan. Return precautions reviewed Differential Diagnosis Differential diagnosis: Likely acute internal derangement of knee and other (Left knee sprain, patella fracture, tibia fracture, femur fracture, soft tissue injury, contusion) Discharge Plan Discharge Clinical Impression: Sprain of lateral collateral ligament of left knee Qualifiers: Encounter type: initial encounter Qualified Code(s): S83.422A - Sprain of lateral collateral ligament of left knee, initial encounter Patient Disposition: Home Condition: Stable Instructions: Antibiotic Form, Knee Sprain (ED), Hinged Knee Brace (ED) Additional Instructions: X-ray shows mild tricompartment osteoarthritis-no fracture or effusion. Rest, ice, elevate, and wear cameron wrap as directed Tylenol for pain as discussed. Wear hinged knee brace splint up walking May apply blue emu, icy Hot, or lidocaine to the affected area Gradually bear weight May continue use of the walker as needed Follow up with your PCP if symptoms persist more than 1 week. Patient Language: Nepali Prescriptions: No Action albuterol sulfate 90 mcg/actuation HFA aerosol inhaler 1 - 2 inh inhalation Q4-6H PRN (Reason: shortness of breath or wheezing) Qty: 8.5 0RF trazodone 50 mg tablet 50 mg PO BID Qty: 180 1RF losartan 50 mg tablet 50 mg PO DAILY Qty: 90 1RF Mounjaro 2.5 mg/0.5 mL pen injector 2.5 mg subcut WEEKLY Rx Instructions: for 4 weeks cholecalciferol (vitamin D3) 50 mcg (2,000 unit) capsule 50 mcg PO DAILY Tradjenta 5 mg tablet 5 mg PO QAM mecobalamin (vitamin B12) 1,000 mcg tablet,chewable 1,000 mcg PO DAILY omeprazole 20 mg capsule,delayed release(DR/EC) 20 mg PO DAILY Qty: 90 0RF atorvastatin 20 mg tablet 20 mg PO QHS Qty: 90 1RF pilocarpine HCl 5 mg tablet 5 mg PO BID Qty: 180 0RF montelukast 10 mg tablet 10 mg PO DAILY Qty: 90 0RF levothyroxine 125 mcg tablet 125 mcg PO DAILY Qty: 90 0RF hydroxychloroquine [Plaquenil] 200 mg tablet 200 mg PO BID hydrocodone-acetaminophen 5-325 mg tablet 1 tablet PO Q6H Qty: 30 0RF hydrochlorothiazide 12.5 mg tablet 12.5 mg PO DAILY Qty: 90 0RF paroxetine HCl 20 mg tablet 20 mg PO DAILY Qty: 90 0RF Follow-up/Referrals: Elaine Bunn PA-C [Primary Care Provider, Family Practice] Time of Disposition: 19:48 Quality NIHSS Nursing Documentation ED NIHSS nursing documentation: reviewed/agree
--- OUTSIDE RECORDS SUMMARY | 2024-12-27 19:28 | XMS_ITS | Encounter Summary ---
Author Organization [facility] Healthcare Address [address] [place] [address] Care Team Providers Care Vp Security Name Role Phone Alessandro Delaney MD Unavailable [phone] Alessandro Delaney MD Primary Care Provider + Elaine Bunn Primary Care Provider [phone] Naveed Green MD Unavailable [phone] Reason for Visit * Reason Onset Date Comments REQUESTING CALL BACK 12/22/2020 Encounter Details Date Type Department Care Team (Late st Contact Info) Description 12/22/2020 Telephone [facility] [address] [facility] [address] [place] [address] Esmer Miramontes MD [address] [facility] [address] [place] [address] REQUESTING CALL BACK Social History Tobacco Use Types Packs/Day Years Used Date Smoking Tobacco: Never Smokeless Tobacco: Never Comments Unknown Sex and Gender Information Value Date Recorded Sex Assigned at Not on file Legal Sex Female 1:58 PM [employer] Gender Identity Not on file Sexual Orientation Not on file documented as of this encounter Plan of Treatment Upcoming Encounters Date Type Department Care Team (Latest Contact Info) Description 01/16/2025 8:30 AM CDT Hospital Encounter [facility] [address] [place] [address] [place] [address] [place] [address] 01/16/2025 8:30 AM CDT - 01/16/2025 1:25 PM CDT Surgery [facility] Room [facility] ([facility]) [facility] [place] [address] [place] [id number] [place] [address] Right Triple Arthrodesis with iliac crest bone graft; possible cotton with allograft, possible achilles lengthening, iliac crest bone graft Scheduled Procedures Name Priority Associated Diagnoses Date/Ti me ARTHRODESIS TRIPLE - FOOT Acquired deformity of right ankle and foot 01/16/2025 8:30 AM CDT BONE GRAFT - ILIAC CREST Acquired deformity of right ankle and foot 01/16/2025 8:30 AM CDT LENGTHENING TENDON - ACHILLES Acquired deformity of right ankle and foot 01/16/2025 8:30 AM CDT OSTEOTOMY COTTON Acquired deformity of right ankle and foot 01/16/2025 8:30 AM CDT documented as of this encounter Goals Goal Patient Goal Type Associated Problems Recent Progress Patient-Stated? Author CCM Chronic Pain Care Plan Chronic Care Management No change(01/27 7:40 AM CDT) No Ethel Bonilla, RN Note: Problem: Chronic Pain Goals: 1. Minimize further functional decline 2. Maximize quality of life 3. Control pain Strategies: - Activity/exercise program recommendation - Conservative stepwise pain medicine strategy with multi-disciplinary approach - Recommend healthy lifestyle strategies and compensatory methods as needed documented as of this encounter Visit Diagnoses Not on filedocumented in this encounter Care Teams Vp Security Relationship Specialty Start Date End Date Alessandro Delaney MD PCP - General Endocrinology Diabetes & Metabolism 09/18/20 04/17/23 Elaine Bunn PA [address] [place] [id number] PCP - General Family Practice 04/18/23 Alessandro Delaney MD Consulting Physician Endocrinology Diabetes & Metabolism 05/21/20 Naveed Green MD [address] [place] [address] Consulting Physician Rheumatology 10/30/24 documented as of this encounter
--- OUTSIDE RECORDS SUMMARY | 2024-12-27 19:28 | XMS_ITS | Clinical Summary ---
Author Organization [facility] Address [address] [place] [address] Care Team Providers Care Bilingual Patient Support Caseworker Name Role Phone Elaine Bunn PA-C Primary Care Provider [phone] Allergies Active Allergy Reactions Criticality Noted Date [...] 2 Chronic right sacroiliac joint pain 11/28/2020 Encounters Date Type Department Care Team Description 12/06/2024 7:50 AM CDT Laboratory Only [facility] [address] [place] [address] Jaiden Walsh MD 12/06/2024 Travel 11/23/2024 2:15 PM CDT - 11/23/2024 11:59 PM CDT Hospital Encounter [facility] [address] [place] [address] Naveed Green MD Discharge Disposition: Home or Self Care (Routine Discharge) 11/23/2024 Travel from Last 3 Months Immunizations Immunization Administration Dates Next Due MODERNA COVID-19 (12+) [...] on file Legal Sex Female 9:[address] RE[address]TER Gender Identity Not on file Sexual Orientation [...] 8:10 PM CDT Height 162.6 cm (5' 4) 12/09/2019 8:10 PM CDT Body Mass Index 39.14 12/09/2019 8:10 PM CDT Plan of Treatment Health Maintenance Due Date Last Done Comments Colorectal Cancer Screening Colonoscopy (10 Years) 1956 Hepatitis C 02/12/1974 Mammogram Screening 1996 Pneumococcal Vaccine: 50+ Years (2 of 2 - PCV) 04/03/2008 04/03/2007 DTaP, Tdap and Td Vaccines (2 - Td or Tdap) 04/03/2017 04/03/2007 Dexa Scan (General) 02/12/2021 COVID-19 Vaccine (3 - season) 2024 05/30/2020, 05/02/2020 RSV Immunization or 60+ Years (1 - 1-dose 75+ series) 02/12/2031 Zoster Vaccines Completed 02/12/2018, 02/02, 10/24/2017, Additional history exists Meningococcal B Vaccine Aged Out No l onger eligible based on patient's age to complete this topic Meningococcal Vaccine Aged Out No shamar sheri eligible based on patient's age to complete this topic RSV Immunizations Under 20 Months Aged Out No longer eligible based on patient's age to complete this topic Procedures Procedure Name Priority Date/Time Associated Diagnosis Comments HEMOGLOBIN, GLYCOSYLATED Routine 12/06/2024 8:00 AM CDT XR SI JOINTS Routine 11/23/2024 3:08 PM CDT Muscle weakness (generalized) Sicca syndrome (HHS/HCC) Raynaud's syndrome without gangrene Fatigue XR HAND RT 2V Routine 11/23/2024 3:08 PM CDT Muscle weakness (generalized) Sicca syndrome (HHS/HCC) Raynaud's syndrome without gangrene Fatigue XR HAND LT 2V Routine 11/23/2024 3:08 PM CDT Muscle weakness (generalized) Sicca syndrome (HHS/HCC) Raynaud's syndrome without gangrene Fatigue from Last 3 Months Results * (ABNORMAL) HEMOGLOBIN, GLYCOSYLATED (12/06/2024 8:00 AM CDT) HGB A1C 6.7(H) <5.7 % 12/06/2024 8:42 AM CDT [facility] Comment: INCREASED RISK OF DIABETES <5.7% NON-DIABETES 5.7-6.4% INCREASED RISK FOR FUTURE DIABETES > OR = 6.5 CONSISTENT WITH DIABETES STANDARDS OF MEDICAL CARE IN DIABETES-2010 DIABETES CARE, 33(SUPP 1): S1-S61,2010 ESTIMATED AVG GLUCOSE 146 mg/dL 12/06/2024 8:42 AM CDT [facility] 12/06/2024 8:00 AM CDT Jaiden Walsh MD LABORATORY Final Result [facility] [address] [place] [address], [place] [phone] * XR SI JOINTS (11/23/2024 3:08 PM CDT) Anatomical Region Laterality Modality Pelvis Radiographic Goldie ging 11/24/2024 4:29 AM CDT Impressions 11/24/2024 4:32 AM CDT IMPRESSION: 1. Mild degenerative changes of sacroiliac joints. 2. Multilevel degenerative changes lower lumbar spine. 3. Degenerative changes of the pubic symphysis, which can be seen with osteitis pubis. Ordered By: ADA VILLELA Interpreted By: Inna Fox MD, 11/24/2024 4:29 AM Narrative 11/24/2024 4:[address] [facility] [address] [facility] [place] [address] PROCEDURE: XR SI JOINTS HISTORY: Muscle weakness COMPARISON: None. TECHNIQUE: 3 views of the sacroiliac joints was obtained. FINDINGS: There is no fracture or malalignment. Mild degenerative changes of the bilateral sacroiliac joint. Multilevel degenerative changes of lower lumbar spine. Degenerative changes in the pubic symphysis, as which can be seen with osteitis pubis. Minimal degenerative changes of the bilateral hip joints. Soft tissues are unremarkable. Procedure Note Inna Fox MD - 11/24/2024 [facility] [address] [facility] [place] [address] PROCEDURE: XR SI JOINTS HISTORY: Muscle weakness COMPARISON: None. TECHNIQUE: 3 views of the sacroiliac joints was obtained. FINDINGS: There is no fracture or malalignment. Mild degenerative changes of thebilateral sacroiliac joint. Multilevel degenerative changes of lowerlumbar spine. Degenerative changes in the pubic symphysis, as which can beseen with osteitis pubis. Minimal degenerative changes of the bilateralhip joints. Soft tissues are unremarkable. IMPRESSION: 1. Mild degenerative changes of sacroiliac joints. 2. Multilevel degenerative changes lower lumbar spine. 3. Degenerative changes of the pubic symphysis, which can be seen withosteitis pubis. Ordered By: ADA VILLELA Interpreted By: Inna Fox MD, 11/24/2024 4:29 AM us Ada Villela PA GENERAL IMAGING Final Result * XR HAND RT 2V (11/23/2024 3:08 PM CDT) Anatomical Region Laterality Modality Hand Radiographic Goldie ging 11/24/2024 4:32 AM CDT Impressions 11/24/2024 4:34 AM CDT IMPRESSION: 1. No acute osseous abnormality is identified. 2. Moderate to severe degenerative changes of the first carpometacarpal joint. Ordered By: ADA VILLELA Interpreted By: Inna Fox MD, 11/24/2024 4:32 AM Narrative 11/24/2024 4:[address] [facility] [address] [facility]. [place] [id number] PROCEDURE: XR HAND RT 2V HISTORY: Right hand pain. COMPARISON: None. TECHNIQUE: PA, oblique and lateral views of the right hand were obtained. FINDINGS: There is no acute fracture or osseous malalignment identified. There are degenerative changes of the first carpometacarpal joint. Degenerative changes of the second and third distal interphalangeal joints. The soft tissues are unremarkable. Procedure Note Inna Fox MD - 11/24/2024 [place] [address] PROCEDURE: XR HAND RT 2V HISTORY: Right hand pain. COMPARISON: None. TECHNIQUE: PA, oblique and lateral views of the right hand wereobtained. FINDINGS: There is no acute fracture or osseous malalignment identified. There aredegenerative changes of the first carpometacarpal joint. Degenerativechanges of the second and third distal interphalangeal joints. The softtissues are unremarkable. IMPRESSION: 1. No acute osseous abnormality is identified. 2. Moderate to severe degenerative changes of the first carpometacarpaljoint. Ordered By: ADA VILLELA Interpreted By: Inna Fox MD, 11/24/2024 4:32 AM Ada Villela PA [facility] Final Result * XR HAND LT 2V (11/23/2024 3:08 PM CDT) Anatomical Region Laterality Modality Hand Radiographic Goldie ging 11/24/2024 4:35 AM CDT Impressions 11/24/2024 4:37 AM CDT IMPRESSION: 1. No acute osseous abnormality is identified. 2. Left hand osteoarthritis. Severe degenerative changes of the first carpometacarpal joint. Ordered By: ADA VILLELA Interpreted By: Inna Fox MD, 11/24/2024 4:35 AM Narrative 11/24/2024 4:[address] [facility] [address] [place] [address] PROCEDURE: XR HAND LT 2V HISTORY: Hand pain. COMPARISON: None. TECHNIQUE: PA, oblique and lateral views of the left hand were obtained. FINDINGS: There is no acute fracture or osseous malalignment identified. Moderate to severe degenerative changes of the first carpal metacarpal joint. There is degenerative changes of the second and third distal interphalangeal joints. Procedure Note Inna Fox MD - 11/24/2024 [facility] [address] [place] [address] PROCEDURE: XR HAND LT 2V HISTORY: Hand pain. COMPARISON: None. TECHNIQUE: PA, oblique and lateral views of the left hand wereobtained. FINDINGS: There is no acute fracture or osseous malalignment identified. Moderate tosevere degenerative changes of the first carpal metacarpal joint. There isdegenerative changes of the second and third distal interphalangealjoints. IMPRESSION: 1. No acute osseous abnormality is identified. 2. Left hand osteoarthritis. Severe degenerative changes of the firstcarpometacarpal joint. 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
--- OUTSIDE RECORDS SUMMARY | 2024-12-27 19:28 | XMS_ITS | Encounter Summary ---
Author Organization [facility] Address [address] [place] [address] Care Team Providers Care Tire Recapping Machine Operator Name Role Phone Alessandro Delaney MD Unavailable [phone] Alessandro Delaney MD Primary Care Provider + Elaine Bunn Primary Care Provider [phone] Naveed Green MD Unavailable Reason for Visit * Reason Onset Date Comments giving info 11/28/2020 Encounter Details Date Type Department Care Team (Late st Contact Info) Description 11/28/2020 Telephone [facility] [address] [facility] [address] [place] [address] Esmer Miramontes MD [address] [place] [address] giving info Social History Tobacco Use Types Packs/Day Years Used Date Smoking Tobacco: Never Smokeless Tobacco: Never Comments Unknown Sex and Gender Information Value Date Recorded Sex Assigned at Not on file 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 Gender Identity Not on file Sexual Orientation Not on file documented as of this encounter Plan of Treatment Upcoming Encounters Date Type Department Care Team (Latest Contact Info) Description 01/16/2025 8:30 AM CDT Hospital Encounter [facility] [address] [place] [address] [place] [address] [place] [address] 01/16/2025 8:30 AM CDT - 01/16/2025 1:25 PM CDT Surgery [facility] ([facility]) [address] [place] [address] [place] [address] [place] [address] 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
--- OUTSIDE RECORDS SUMMARY | 2024-12-27 19:28 | XMS_ITS | Encounter Summary ---
Author Organization [facility] Address [address] [place] [address] Phone Care Team Providers Care Process Eng Name Role Phone Alessandro Delaney MD Unavailable [phone] Elaine Bunn Primary Care Provider [phone] Naveed Green MD Unavailable [phone] Encounter Details Date Type Department Care Team (Latest Contact Info) Description 11/23/2024 Results Follow-Up [facility] [address] [place] [phone] Ada Villela, JESSICA [address] [place] [phone] Creatine kinase (CK), total, CBC with auto differential, Comprehensive metabolic panel, Additional followed-up results: 3 Social History Tobacco Use Types Packs/Day Years Used Date Smoking Tobacco: Never Smokeless Tobacco: Never AUDIT-C Answer Date Recorded Q1: How often do you have a drink containing alc ohol? Never 04/02/2021 Q2: How many drinks containi ng alcohol do you have on a typical day when you are drinking? 1 or 2 04/02/2021 Frequency of Binge Drinking Not on file 03/06 Personal Safety Answer Date Recorded Have you ever been in or are you currently in a harmful physical or emotional relationship or is someone making you feel afraid or unsafe? 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 Gender Identity Not on file Sexual Orientation Not on file documented as of this encounter Plan of Treatment Upcoming Encounters Date Type Department Care Team (Latest Contact Info) Description 01/16/2025 8:30 AM CDT Hospital Encounter [facility] [address] [place] [address] [place] [address] [place] [address] 01/16/2025 8:30 AM CDT - 01/16/2025 1:25 PM CDT Surgery [facility] [address] [place] [address] [place] [address] [place] [address] 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
--- OUTSIDE RECORDS SUMMARY | 2024-12-27 19:28 | XMS_ITS | Encounter Summary ---
Author Organization [facility] Address [address] [place] [address] Care Team Providers Care Butcher'S Assistant Name Role Phone Alessandro Delaney MD Unavailable [phone] Elaine Bunn Primary Care Provider [phone] Naveed Green MD Unavailable [phone] Encounter Details Date Type Department Care Team (Late st Contact Info) Description 12/10/2024 Results Follow-Up [facility] [address] [phone] Alessandro Delaney MD [facility] [address] [address] XR Ankle Right 3 or More Views Social History Tobacco Use Types Packs/Day Years [...] on file 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 Gender Identity Not on file Sexual Orientation Not on file documented as of this encounter Plan of Treatment Upcoming Encounters Date Type Department Care Team (Latest Contact Info) Description 01/16/2025 8:30 AM CDT Hospital Encounter [facility] [address] [place] [address] [place] [address] [place] [address] 01/16/2025 8:30 AM CDT - 01/16/2025 1:25 PM CDT Surgery [facility] [address] [place] [address] [place] [address] [place] [address] 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
--- OUTSIDE RECORDS SUMMARY | 2024-12-27 19:28 | XMS_ITS | Clinical Summary ---
Author Organization [facility] [address] Address [address] [place] [address] Care Team Providers Care Refractory Products Supervisor Name Role Phone Alessandro Delaney MD Unavailable [phone] Elaine Bunn Primary Care Provider [phone] Naveed Green MD Unavailable [phone] Allergies Active Allergy Reactions Criticality Noted Date Comments Ibuprofen Shortness of breath High 02/14/2019 Meloxicam Shortness of breath High 11/28/2020 Naproxen Shortness of breath, Swelling,Flushing (skin) High 02/14/2019 Penicillin Rash Medium 10/15/2024 Penicillins Rash High 02/14/2019 Medications montelukast (SINGULAIR) [...] 1 tablet (125 mcg total) by mouth 3d modeler before breakfast Active cyanocobalamin 2,000 mcg tablet Take 1 tablet (2,000 mcg total) by mouth daily Active losartan (COZAAR) 50 mg tablet Take 1 tablet (50 mg total) by mouth daily 4 Active atorvastatin (LIPITOR) 20 mg tablet Take 1 tablet (20 mg total) by mouth nightly at bedtime 4 Active polyethylene glycol (MIRALAX) 17 gram/dose bulk powder Take 17 g by mouth daily Active omega-3 fatty acids-fish oil 300-1,000 mg capsule Take 2 capsules (2 g total) by mouth daily Active blood glucose diagnostic (glucose blood) strip Test blood sugar twice daily 200 each 2 5 11/10/19 26 Active tirzepatide (Mounjaro) 2.5 mg/0.5 mL pen injector injection Inject 0.5 mL (2.5 mg total) under the skin once a week 2 mL 2 5 Active carboxymethylce llulose-glycern 0.5-0.9 % drops Administer into affected eye(s) [place] 3 Active hydroxychloroqu ine (PLAQUENIL) 200 mg tablet Take 1 tablet (200 mg total) by mouth 2 (two) times a day 180 tablet 1 5 Active Active Problems Problem Noted Date Diagnosed Date Undifferentiated connective tissue disease 11/23 Overview (11/30/2024): 11/2024 labs: CK 102, TSH 1.50, AVISE JEFFREY 1:640 (nuclear centromere), anti-CL IgG 62, anti-B2 glycoprotein IgG 100, Centromere B 49, anti-thyroglobulin 119 11/2024 XR: -Lt hand: moderate to severe OA changes of the 1st CMC joint, OA changes of 2nd and 3rd DIP joints -Rt hand: OA changes of the 1st CMC joint, 2nd and 3rd DIP joints -SI joints: mild OA changes of SI joints and pubic symphysis (osteitis pubis), multilevel degenerative changes of lower spine US left hand/wrist 11/27/24: 1. Grade 1-2 effusions and power Doppler of the dorsal wrist 2. Grade 1 power Doppler of the radial scaphoid joint 3. Mild synovial thickening of the 3rd MCP joint with dorsal spurring present 4. Mild synovial thickening of the 2nd and 3rd PIPJ 5. Marked spurring of the 1st CMC joint 6. Limited views of the right knee show no evidence of crystal deposition Assessment & Plan (12/06/2024 6:22 PM CDT): Ms. Dash is a 69yo female with PMH of HTN, HLD, ANTONY, asthma, GERD, hypothyroidism, anxiety, Lumbar Stenosis w/ right sciatica, T2DM, hx Breast CA s/p L mastectomy, Vit D def, Raynaud's, blood transfusion 2008, diverticulitis and GI ulcer who presented at last visit for evaluation of joint pain with recent JEFFREY 1:640 (centromere)/1:80 (speckled). Lateral hips and right posterior shoulder/neck are sources of pain. Hip pain is present with ascending/descending stairs and is located posterolaterally. Denies any difficulty elevating her arms overhead or getting up from seated position. Has had 2 instances of isolated joint swelling/pain affecting her right great toe and several months later her left 2nd MCP joint. Unable to tolerate NSAIDs and takes Cheshire 3 times/week as well as Tylenol although this offers no benefit. Additional symptoms include fatigue, recent rash on thigh/chest wall resolved with hydrocortisone cream, Raynauds wo ulcerations and occasional dyspnea. No first degree relatives with rheumatic conditions. Recent AVISE panel was positive for JEFFREY 1:640 (nuclear centromere), anti-CL IgG 62, antiB2 glycoprotein IgG 100, centromere B 49 and anti-thyroglobulin 119. Recent uric acid level drawn that was 7.0. Radiographic imaging of the bilateral hands in the SI joints demonstrated varying degrees of osteoarthritic changes. A left hand/wrist ultrasound revealed grade 1-2 effusions and power Doppler of the dorsal wrist, grade 1 power Doppler at the radioscaphoid joint, mild synovial thickening of the 3rd MCP joint with spurring present and mild thickening of the 2nd and 3rd PIP joints. A limited view of the right knee did not show evidence of crystal deposition. May have undifferentiated CTD - she has various antibodies concerning for different diseases but does not meet definitive criteria for any of them. Could still have Sjogren's given sicca sxs with +JEFFREY. Will order PFTs and TTE to further assess her dyspnea complaints with her centromere B antibody, although she does not meet the criteria for a scleroderma diagnosis either. Will repeat APS studies with lupus anticoagulant at next visit as well. Recommend starting treatment with hydroxychloroquine 200 mg BID for antibody stabilization and to see if she notes any reduction in her symptoms/joint complaints. Discussed SE including but not limited to dizziness, nausea/diarrhea and in rare cases retinal toxicity. Retinal toxicity is rare and occurs in less than 1% of people taking HCQ. She was amenable to the plan. Will send off HCQ paperwork to her eye doctor to ensure retina are healthy. She is already on pilocarpine and uses lubricating drops and conservative treatment for her dry mouth symptoms - could consider changing to civemeline as well in the future but discussed increasing pilocarpine to TID today. Hip pain may be gluteal tendon/IT band mediated - recommend stretching/exercises. Return in 3 months for re-evaluation, sooner if needed. Seen with Dr. Green. Assessment & Plan (11/23/2024 8:41 AM CDT): Ms. Dash is a 69yo female with PMH of HTN, HLD, ANTONY, asthma, GERD, hypothyroidism, anxiety, Lumbar Stenosis w/ right sciatica, T2DM, hx Breast CA s/p L mastectomy, Vit D def, Raynaud's, blood transfusion 2008, diverticulitis and GI ulcer who presents for evaluation of joint pain with recent JEFFREY 1:640 (centromere)/1:80 (speckled). Lateral hips and right posterior shoulder/neck are sources of pain. Hip pain is present with ascending/descending stairs and is located posterolaterally. Denies any difficulty elevating her arms overhead or getting up from seated position. Has had 2 instances of isolated joint swelling/pain affecting her right great toe and several months later her left 2nd MCP joint. Unable to tolerate NSAIDs and takes Cheshire 3 times/week as well as Tylenol although this offers no benefit. Additional symptoms include fatigue, recent rash on thigh/chest wall resolved with hydrocortisone cream, Raynauds wo ulcerations and occasional dyspnea. No first degree relatives with rheumatic conditions. On exam she has moderately dry oral mucosa with normal oral aperture. FROM of shoulders and hips without pain on testing and 5/5 strength. Slight fullness of the left 2-3rd MCP joints with ttp, SI joints ttp bilaterally. Likely has Sjogren's Syndrome based on elevated JEFFREY titer and sicca symptoms despite negative SSA/SSB, however joint symptoms are unlikely related. She is already on pilocarpine and uses lubricating drops and conservative treatment for her dry mouth symptoms. Could consider changing to civemeline as well in the future. Will perform appropriate radiographs, serologies (including an AVISE panel which differentiates the SSA antibody and may show positivity for 1 of the 2), and left hand US to assess the etiology of symptoms. If work up does not reveal a cause for the joint swelling will continue to monitor and have her return during a flare up. Of note she did have recent uric acid level drawn that was 7.0. Return in [address] Green. Acquired deformity of right ankle and foot 05/15 Chronic right sacroiliac pain 11/28/2020 Chronic right-sided low back pain with sciatica 11/28/2020 Type 2 diabetes mellitus wit hout complication, without long-term current use of insulin 07/03/2020 Overview (07/03/2020): Continue SGLT2 Essential hypertension 07/03/2020 Overview (07/03/2020): Same meds Mixed hyperlipidemia 07/03/2020 Overview (07/03/2020): Same meds Primary hypothyroidism 07/03/2020 Overview (07/03/2020): Check labs Encounters Date Type Department Care Team Description 12/10/2024 9:44 AM CDT - 12/10/2024 11:59 PM CDT Hospital Encounter [facility] [address] [place] [address] Jeferson Schneider MD Right foot pain; Right ankle pain, unspecified chronicity Discharge Disposition: Discharge to home or self care 12/10/2024 9:43 AM CDT - 12/10/2024 11:59 PM CDT Hospital Encounter [facility] [address] [place] [address] Jeferson Schneider MD Right foot pain; Right ankle pain, unspecified chronicity Discharge Disposition: Discharge to home or self care 12/10/2024 9:40 AM CDT Office Visit [facility] Medicine Orthopaedic Surgery [address] [facility] [address] [place] [phone] Jeferson Schneider MD Right foot pain (Primary Dx); Right ankle pain, unspecified chronicity 12/10/2024 Results Follow-Up [facility] [address] [place] [phone] Alessandro Delaney MD XR Ankle Right 3 or More Views 12/06/2024 2:45 PM CDT Office Visit [address] [phone] Ada Handley PA Undifferentiated connective tissue disease (Primary Dx); Centromere antibody positive; Dyspnea, unspecified type 11/27/2024 2:49 PM CDT - 11/27/2024 11:59 PM CDT Hospital Encounter [address] [phone] Muscle weakness; Sicca syndrome; Raynaud's phenomenon without gangrene; Fatigue, unspecified type Discharge Disposition: Discharge to home or self care 11/27/2024 Results Follow-Up [facility] [address] [place] [phone] Alessandro Delaney MD SCAN - RADIOLOGY/IMAGING 11/27/2024 Orders Only [address] [phone] Ada Handley PA 11/23/2024 Results Follow-Up [address] [phone] Ada Handley PA Creatine kinase (CK), total, CBC with auto differential, Comprehensive metabolic panel, Additional followed-up results: 3 11/22/2024 2:15 PM CDT Office Visit [address] [phone] Ada Handley PA Sicca syndrome (Primary Dx); Muscle weakness; Raynaud's phenomenon without gangrene; Fatigue, unspecified type 11/09/2024 Telephone [facility] [address] [place] [phone] Alessandro Delaney MD medication 10/22/2024 1:06 PM CDT - 10/22/2024 11:59 PM CDT Hospital Encounter [facility] [address] [place] [address] Jeferson Schneider MD Pain in joint involving ankle and foot, unspecified laterality; Right foot pain; Pre-op testing Discharge Disposition: Discharge to home or self care 10/22/2024 11:00 AM CDT Office Visit [facility] [address] [place] [phone] Alessandro Delaney MD Type 2 diabetes mellitus without complication, without long-term current use of insulin (HCC) (Primary Dx); Primary hypothyroidism; Mixed hyperlipidemia; Essential hypertension 10/15/2024 11:20 AM CDT - 10/15/2024 11:59 PM CDT Hospital Encounter [facility] [address] [place] [phone] Pain in joint involving ankle and foot, unspecified laterality; Right foot pain; Pre-op testing Discharge Disposition: Discharge to home or self care 10/15/2024 11:20 AM CDT - 10/15/2024 11:59 PM CDT Hospital Encounter [facility] [address] [place] [phone] Pain in joint involving ankle and foot, unspecified laterality; Right foot pain; Pre-op testing Discharge Disposition: Discharge to home or self care 10/15/2024 10:00 AM CDT Office Visit [facility] Medicine Orthopaedic Surgery [address] [facility] [address] [place] [address] Jeferson Schneider MD Pain in joint involving ankle and foot, unspecified laterality (Primary Dx); Right foot pain; Pre-op testing from Last 3 Months Surgical History Surgery Date Site/Laterality Comments MASTECTOMY Left APPENDECTOMY SECTION FLUORO GUIDED INJECTION ANKLE RIGHT 07/30/2024 Right LAMINECTOMY Bilateral WISDOM TOOTH EXTRACTION BLEPHAROPLASTY 02/19/2019 Bilateral Medical History Medical History Date Comments Thyroid disease Breast cancer (HCC) Diabetes mellitus Asthma Hypertension Arthritis ANTONY (obstructive sleep apnea) [...] on file Legal Sex Female 1:58 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 Gender Identity Not on file Sexual Orientation Not on file Obstetrics History Last Filed Vital Signs Vital Sign Reading Time Taken Comments Blood Pressure 120/78 12/06/2024 2:44 PM CDT Pulse 82 12/06/2024 2:44 PM CDT Temperature 36.5 C (97.7 F) 09/14/2021 1:00 PM CDT Respiratory Rate 16 07/30/2024 10:3 0 AM CDT Oxygen Saturation 97% 12/06/2024 2:44 PM CDT Inhaled Oxygen Concentration - - Weight 106.1 kg (233 lb 12.8 oz) 12/06/2024 2:44 PM CDT Height 162.6 cm (5' 4) 12/06/2024 2:44 PM CDT Body Mass Index 40.13 12/06/2024 2:44 PM CDT Plan of Treatment Upcoming Encounters Date Type Department Care Team (Latest Contact Info) Description 01/16/2025 8:30 AM CDT Hospital Encounter [facility] [address] [place] [address] [place] [id number] [place] [address] 01/16/2025 8:30 AM CDT - 01/16/2025 1:25 PM CDT Surgery [facility] [address] [place] [address] [place] [id number] [place] [address] Right Triple Arthrodesis with iliac crest bone [...] ankle and foot 01/16/2025 8:30 AM CDT Health Maintenance Due Date Last Done Comments Albumin Creatinine Ratio, Urine 1955 Breast Cancer Screening-Mammogram 1956 Colon Cancer Screening-Colonoscopy 1955 Depression Screening 1955 Hepatitis C Screening 1956 Osteoporosis Screening-Bone Density Scan 1955 Dilated Eye Exam 1955 Foot Exam 1955 Pneumococcal vaccine 65+ (3 of 3 - PCV) 04/11/2014 04/11/2013, 04/03/2007 DTaP/Tdap/Td Vaccine (2 - Td or Tdap) 04/03/2017 04/03/2007 Covid-19 Vaccine (3 - Modern a risk series) 06/27/2020 05/30/2020, 05/02/2020 Well Visit 65+ 02/12/2021 Lipid Panel 07/03/2021 07/03/2020 Influenza Vaccine (#1) 2024 9, 01/07/2016, 01/02/2013 Hemoglobin A1C 04/24/2025 10/22/2024, 01/0 05/2024, 10/24/2023, Additional history exists Fall Risk Assessment 07/30/2025 07/30/2024, 04/02/20 21 eGFR 11/22/2025 11/22/2024, 04/05, 04/18/2023 Hepatitis B Screening Completed 12/05/2002 , [...] Procedure Name Priority Date/Time Associated Diagnosis Comments XR FOOT RIGHT 3 OR MORE VIEWS Schedule Routine, Read Routine (OP Routine) 12/10/2024 10:00 AM CDT Right foot pain Right ankle pain, unspecified chronicity XR ANKLE RIGHT 3 OR MORE VIEWS Schedule Routine, Read Routine (OP Routine) 12/10/2024 10:00 AM CDT Right foot pain Right ankle pain, unspecified chronicity US HAND COMPLETE Schedule Routine, Read Routine (OP Routine) 11/27/2024 3:35 PM CDT Muscle weakness Sicca syndrome Raynaud's phenomenon without gangrene Fatigue, unspecified type SCAN - RADIOLOGY/IMAGING 11/27/2024 10:25 AM CDT CRP (ACUTE PHASE) Routine 11/22/2024 4:0 9 PM CDT Muscle weakness Sicca syndrome Raynaud's phenomenon without gangrene Fatigue, unspecified type THYROID FUNCTION CASCADE Routine 11/22/2024 4:09 PM CDT Muscle weakness Sicca syndrome Raynaud's phenomenon without gangrene Fatigue, unspecified type COMPREHENSIVE METABOLIC PANEL Routine 11/22/2024 4:09 PM CDT Muscle weakness Sicca syndrome Raynaud's phenomenon without gangrene Fatigue, unspecified type CBC WITH AUTO DIFFERENTIAL Routine 11/22/2024 4:09 PM CDT Muscle weakness Sicca syndrome Raynaud's phenomenon without gangrene Fatigue, unspecified type CREATINE KINASE (CK), TOTAL Routine 11/22/2024 4:09 PM CDT Muscle weakness Sicca syndrome Raynaud's phenomenon without gangrene Fatigue, unspecified type MISCELLANEOUS LAB TEST Routine 11/22/2024 2:29 PM CDT Muscle weakness Sicca syndrome Raynaud's phenomenon without gangrene Fatigue, unspecified type CT ANKLE RIGHT WO CONTRAST Schedule Routine, Read Routine (OP Routine) 10/22/2024 2:20 PM CDT Pain in joint involving ankle and foot, unspecified laterality Right foot pain Pre-op testing POCT HEMOGLOBIN A1C Routine 10/22/2024 11:25 AM CDT Type 2 diabetes mellitus without complication, without long-term current use of insulin (HCC) XR FOOT RIGHT 3 OR MORE VIEWS Schedule Routine, Read Routine (OP Routine) 10/15/2024 11:31 AM CDT Pain in joint involving ankle and foot, unspecified laterality Right foot pain Pre-op testing XR ANKLE RIGHT 3 OR MORE VIEWS Schedule Routine, Read Routine (OP Routine) 10/15/2024 11:31 AM CDT Pain in joint involving ankle and foot, unspecified laterality Right foot pain Pre-op testing POCT LIPID PANEL Routine 07/03/2020 9:33 AM CDT Mixed hyperlipidemia from Last 3 Months or Most Recently Relevant to Health Maintenance Results * XR Foot Right 3 or More Views (12/10/2024 10:00 AM CDT) Anatomical Region Laterality Modality Lower Extremities, Foot Right Computed Radiography 12/10/2024 11:3 9 AM CDT Impressions 12/10/2024 12:03 PM CDT 1. 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 2. Unchanged pes planovalgus and hallux valgus. Dictated by: Carly Rios M.D. The radiology attending physician has personally reviewed this study, and had reviewed and/or edited this written report and agrees with it. Electronically signed by: Livan Mandel M.D. Narrative 12/10/2024 12:03 PM CDT EXAMINATION: XR ANKLE RIGHT 3 OR MORE VIEWS, XR FOOT RIGHT 3 OR MORE VIEWS HISTORY: Right foot and ankle pain COMPARISON: 10/15/2024 FINDINGS: 3 radiographs of the right foot and right ankle were submitted for interpretation. There is severe tibiotalar osteoarthritis. There is moderate polyarticular midfoot and forefoot osteoarthritis. There is pes planovalgus with primum metatarsus varus and hallux valgus. Procedure Note Livan Mandel MD PhD - 12/10/2024 EXAMINATION: XR ANKLE RIGHT 3 OR MORE VIEWS, XR FOOT RIGHT 3 OR MORE VIEWS HISTORY: Right foot and ankle pain COMPARISON: 10/15/2024 FINDINGS: 3 radiographs of the right foot and right ankle were submitted for interpretation. There is severe tibiotalar osteoarthritis. There is moderate polyarticular midfoot and forefoot osteoarthritis. There is pes planovalgus with primum metatarsus varus and hallux valgus. IMPRESSION: 1. 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 2. Unchanged pes planovalgus and hallux valgus. Dictated by: Carly Rios M.D. The radiology attending physician has personally reviewed this study, and had reviewed and/or edited this written report and agrees with it. Electronically signed by: Livan Mandel M.D. Jeferson Schneider MD IMG XR PROCEDURES Dorinda l Result * XR Ankle Right 3 or More Views (12/10/2024 10:00 AM CDT) Anatomical Region Laterality Modality Lower Extremities, Ankle Right Compute d Radiography 12/10/2024 11:3 9 AM CDT Impressions 12/10/2024 12:03 PM CDT 1. 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 2. Unchanged pes planovalgus and hallux valgus. Dictated by: Carly Rios M.D. The radiology attending physician has personally reviewed this study, and had reviewed and/or edited this written report and agrees with it. Electronically signed by: Livan Mandel M.D. Narrative 12/10/2024 12:03 PM CDT EXAMINATION: XR ANKLE RIGHT 3 OR MORE VIEWS, XR FOOT RIGHT 3 OR MORE VIEWS HISTORY: Right foot and ankle pain COMPARISON: 10/15/2024 FINDINGS: 3 radiographs of the right foot and right ankle were submitted for interpretation. There is severe tibiotalar osteoarthritis. There is moderate polyarticular midfoot and forefoot osteoarthritis. There is pes planovalgus with primum metatarsus varus and hallux valgus. Procedure Note Livan Mandel MD PhD - 12/10/2024 EXAMINATION: XR ANKLE RIGHT 3 OR MORE VIEWS, XR FOOT RIGHT 3 OR MORE VIEWS HISTORY: Right foot and ankle pain COMPARISON: 10/15/2024 FINDINGS: 3 radiographs of the right foot and right ankle were submitted for interpretation. There is severe tibiotalar osteoarthritis. There is moderate polyarticular midfoot and forefoot osteoarthritis. There is pes planovalgus with primum metatarsus varus and hallux valgus. IMPRESSION: 1. 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 2. Unchanged pes planovalgus and hallux valgus. Dictated by: Carly Rios, M.D. The radiology attending physician has personally reviewed this study, and had reviewed and/or edited this written report and agrees with it. Electronically signed by: Livan Mandel M.D. us Jeferson Schneider MD IMG XR PROCEDURES Dorinda l Result * US Hand Complete (11/27/2024 3:35 PM CDT) Anatomical Region Laterality Modality Hand N/A Ultrasound us Ada LOPEZ IMG US PROCEDUR ES Final Result * SCAN - RADIOLOGY/IMAGING (11/27/2024 10:25 AM CDT) Anatomical Region Laterality Modality Other Ada LOPEZ Edited Result - Final * Thyroid Function [place] (11/22/2024 4:09 PM CDT) Pathologist [facility] TSH 1.50 0.40 - 4.50 mIU/L [facility] Blood 11/22/2024 4:09 PM CDT 11/22/2024 4:10 PM CDT Ada LOPEZ LAB BLOOD ORDER FRANCO Final Result [facility] [address] [place] [address] * (ABNORMAL) CBC with auto differential (11/22/2024 4:09 PM CDT) WBC 5.9 3.8 - 10.8 Thousand/u L [facility] RBC, POC 4.76 3.80 - 5.10 Million/uL [facility] Hgb 15.1 11.7 - 15.5 g/dL [facility] Hct 45.1(H) 35.0 - 45.0 % [facility] MCV 94.7 80.0 - 100.0 fL [facility] MCH 31.7 27.0 - 33.0 pg [facility] MCHC 33.5 32.0 - 36.0 g/dL [facility] Comment: For adults, a slight decrease in the calculated MCHC value (in the range of 30 to 32 g/dL) is most likely not clinically significant; however, it should be interpreted with caution in correlation with other red cell parameters and the patient's clinical condition. Rdw 13.1 11.0 - 15.0 % [facility] Platelets 180 140 - 400 Thousand/u L [facility] MPV 10.9 7.5 - 12.5 fL [facility] Neutrophils, abs 3,658 1,500 - 7,800 cells/uL [facility] Lymphocytes, abs 1,682 850 - 3,900 cells/uL [facility] Monocyte abs 413 200 - 950 cells/uL [facility] Eosinophils, abs 89 15 - 500 cells/uL [facility] Basophils, abs 59 0 - 200 cells/uL [facility] Neutrophils 62 % [facility] Lymphocyte pct 28.5 % [facility] Monocytes 7.0 % [facility] Eosinophils 1.5 % [facility] Basophils 1.0 % [facility] Blood 11/22/2024 4:09 PM CDT 11/22/2024 4:10 PM CDT Ada LOPEZ LAB BLOOD ORDER FRANCO Final Result [facility] [address] [facility] [place] [phone] * CRP (acute phase) (11/22/2024 4:09 PM CDT) C-RP 5.4 <8.0 mg/L [facility] Blood 11/22/2024 4:09 PM CDT 11/22/2024 4:10 PM CDT Ada LOPEZ LAB BLOOD ORDER FRANCO Final Result Performing Organization Address City/[facility]/ZIP Co de Phone Number [facility] [address] [place] [address] * Creatine kinase (CK), total (11/22/2024 4:09 PM CDT) Pathologist [facility] CK 102 20 - 243 U/L [facility] Blood 11/22/2024 4:09 PM CDT 11/22/2024 4:10 PM CDT Ada LOPEZ LAB BLOOD ORDER FRANCO Final Result Performing Organization Address [facility] Co de Phone Number [facility] [address] [place] [address] * Comprehensive metabolic panel (11/22/2024 4:09 PM CDT) Pathologist [facility] Glucose 79 65 - 99 mg/dL [facility] Comment: Fasting reference interval BUN 11 7 - 25 mg/dL [facility] Creatinine 0.97 0.50 - 1.05 mg/dL [facility] eGFR 64 > OR = 60 mL/min/1.7 3m2 [facility] BUN/creat ratio SEE NOTE: 6 - 22 (calc) [facility] Comment: Not Reported: BUN and Creatinine are within reference range. Sodium 137 135 - 146 mmol/L [facility] Potassium, pl 3.9 3.5 - 5.3 mmol/L [facility] Chloride 98 98 - 110 mmol/L [facility] CO2 30 20 - 32 mmol/L [facility] Calcium 9.6 8.6 - 10.4 mg/dL [facility] Protein, sr 6.9 6.1 - 8.1 g/dL [facility] Albumin 4.6 3.6 - 5.1 g/dL [facility] GLOBULIN 2.3 1.9 - 3.7 g/dL (calc) [facility] Alb/glob ratio 2.0 1.0 - 2.5 (calc) [facility] Bilirubin, total 0.7 0.2 - 1.2 mg/dL [facility] Alk phos 60 37 - 153 U/L [facility] AST 22 10 - 35 U/L [facility] ALT (SGPT) 26 6 - 29 U/L [facility] Blood 11/22/2024 4:0 9 PM CDT 11/22/2024 4:10 PM CDT Ada LOPEZ LAB BLOOD ORDER FRANCO Final Result Performing Organization Address [facility] Co de Phone Number QUEST [facility] [address] [place] [address] * AVISE CTD - Miscellaneous Test (11/22/2024 2:29 PM CDT) Miscellaneous Ada LOPEZ LAB BLOOD ORDER FRANCO Final Result Performing Organization Address City/[facility] Co de Phone Number EXTERNAL LAB * CT Ankle Right WO Contrast (10/22/2024 2:20 PM CDT) Anatomical Region Laterality Modality Ankle Right Computed Tomogra phy 10/22/2024 4:36 PM CDT Impressions 10/22/2024 5:21 PM CDT 1. Preoperative planning CT demonstrates severe right ankle osteoarthritis. Dictated by: Amauri Cline MD The radiology attending physician has personally reviewed this study, and had reviewed and/or edited this written report and agrees with it. Electronically signed by: Sean Mendoza M.D. Narrative 10/22/2024 5:21 PM CDT EXAMINATION: CT ANKLE RIGHT WO CONTRAST HISTORY: Tibiotalar osteoarthritis, preoperative TECHNIQUE: Transaxial computed tomographic images of the right ankle were obtained without intravenous contrast according to the prophecy protocol COMPARISON: Radiographs from 10/15/2024 FINDINGS: In the right knee: Partially imaged collateral vessels are present within the predominantly right thigh. There is no knee joint effusion. There is moderate medial compartment predominant knee osteoarthritis. No acute fracture. No acute abnormality within the soft tissues. Posterior loose body. In the right ankle: There is severe tibiotalar osteoarthritis with collapse of the predominantly medial mortise and exuberant subchondral cyst formation. Heterotopic ossification overlies the medial malleolus. There is a small tibiotalar joint effusion. No acute fracture. There is a small plantar calcaneal spur. Moderate 1st metatarsal phalangeal and midfoot osteoarthritis. No organized or drainable fluid collection. Procedure Note Sean Mendoza MD - 10/22/2024 EXAMINATION: CT ANKLE RIGHT WO CONTRAST HISTORY: Tibiotalar osteoarthritis, preoperative TECHNIQUE: Transaxial computed tomographic images of the right ankle were obtained without intravenous contrast according to the prophecy protocol COMPARISON: Radiographs from 10/15/2024 FINDINGS: In the right knee: Partially imaged collateral vessels are present within the predominantly right thigh. There is no knee joint effusion. There is moderate medial compartment predominant knee osteoarthritis. No acute fracture. No acute abnormality within the soft tissues. Posterior loose body. In the right ankle: There is severe tibiotalar osteoarthritis with collapse of the predominantly medial mortise and exuberant subchondral cyst formation. Heterotopic ossification overlies the medial malleolus. There is a small tibiotalar joint effusion. No acute fracture. There is a small plantar calcaneal spur. Moderate 1st metatarsal phalangeal and midfoot osteoarthritis. No organized or drainable fluid collection. IMPRESSION: 1. Preoperative planning CT demonstrates severe right ankle osteoarthritis. Dictated by: Amauri Cline MD The radiology attending physician has personally reviewed this study, and had reviewed and/or edited this written report and agrees with it. Electronically signed by: Sean Mendoza M.D. Jeferson Schneider MD IMG CT PROCEDURES Dorinda l Result * (ABNORMAL) POCT hemoglobin A1c (10/22/2024 11:25 AM CDT) Hemoglobin A1C, POC 8.2(A) 4.0 - 5.6 % Blood 10/22/2024 11:2 5 AM CDT Alessandro Delaney MD POINT OF CARE TEST ORDER FRANCO Final Result * XR Foot Right 3 or More Views (10/15/2024 11:31 AM CDT) Anatomical Region Laterality Modality Lower Extremities, Foot Right Computed Radiography 10/15/2024 1:14 PM CDT Impressions 10/15/2024 1:14 PM CDT 1. Severe tibiotalar and moderate polyarticular mid and forefoot osteoarthritis. 2. Pes planovalgus with hallux valgus deformity. Electronically signed by: Demetrius Kamara M.D. Narrative 10/15/2024 1:14 PM CDT XR ANKLE RIGHT 3 OR MORE VIEWS, XR FOOT RIGHT 3 OR MORE VIEWS HISTORY: Right ankle and foot pain. FINDINGS: 3 weightbearing views each of the right ankle and foot are obtained and compared with 03/19/2024. There is no acute fracture. There is unchanged severe tibiotalar osteoarthritis. Unchanged polyarticular moderate mid and forefoot osteoarthritis. There is pes planovalgus with primum metatarsus varus and hallux valgus. Moderate forefoot soft tissue swelling is present. Procedure Note Demetrius Kamara MD - 10/15/2024 XR ANKLE RIGHT 3 OR MORE VIEWS, XR FOOT RIGHT 3 OR MORE VIEWS HISTORY: Right ankle and foot pain. FINDINGS: 3 weightbearing views each of the right ankle and foot are obtained and compared with 03/19/2024. There is no acute fracture. There is unchanged severe tibiotalar osteoarthritis. Unchanged polyarticular moderate mid and forefoot osteoarthritis. There is pes planovalgus with primum metatarsus varus and hallux valgus. Moderate forefoot soft tissue swelling is present. IMPRESSION: 1. Severe tibiotalar and moderate polyarticular mid and forefoot osteoarthritis. 2. Pes planovalgus with hallux valgus deformity. Electronically signed by: Demetrius Kamara M.D. Jeferson Schneider MD IMG XR PROCEDURES Dorinda l Result * XR Ankle Right 3 or More Views (10/15/2024 11:31 AM CDT) Anatomical Region Laterality Modality Lower Extremities, Ankle Right Compute d Radiography 10/15/2024 1:14 PM CDT Impressions 10/15/2024 1:14 PM CDT 1. Severe tibiotalar and moderate polyarticular mid and forefoot osteoarthritis. 2. Pes planovalgus with hallux valgus deformity. Electronically signed by: Demetrius Kamara M.D. Narrative 10/15/2024 1:14 PM CDT XR ANKLE RIGHT 3 OR MORE VIEWS, XR FOOT RIGHT 3 OR MORE VIEWS HISTORY: Right ankle and foot pain. FINDINGS: 3 weightbearing views each of the right ankle and foot are obtained and compared with 03/19/2024. There is no acute fracture. There is unchanged severe tibiotalar osteoarthritis. Unchanged polyarticular moderate mid and forefoot osteoarthritis. There is pes planovalgus with primum metatarsus varus and hallux valgus. Moderate forefoot soft tissue swelling is present. Procedure Note Demetrius Kamara MD - 10/15/2024 XR ANKLE RIGHT 3 OR MORE VIEWS, XR FOOT RIGHT 3 OR MORE VIEWS HISTORY: Right ankle and foot pain. FINDINGS: 3 weightbearing views each of the right ankle and foot are obtained and compared with 03/19/2024. There is no acute fracture. There is unchanged severe tibiotalar osteoarthritis. Unchanged polyarticular moderate mid and forefoot osteoarthritis. There is pes planovalgus with primum metatarsus varus and hallux valgus. Moderate forefoot soft tissue swelling is present. IMPRESSION: 1. Severe tibiotalar and moderate polyarticular mid and forefoot osteoarthritis. 2. Pes planovalgus with hallux valgus deformity. Electronically signed by: Demetrius Kamara M.D. Jeferson Schneider MD IMG XR PROCEDURES Dorinda [...] Health Maintenance Insurance CHOICE PLUS CHOICE PLUS [place] [id number] [facility] CHOICE PLUS MEDICARE [facility] Address: [address] [address] [facility] CHOICE PLUS Care Teams Refractory Products Supervisor Relationship Specialty Start Date End Date Elaine Bunn PA [address] [place] [id number] PCP - General Family Practice 04/18/23 Alessandro Delaney MD Consulting Physician Endocrinology Diabetes & Metabolism 05/21/20 Naveed Green MD [facility] [place] [address] Consulting Physician Rheumatology 10/30/24
--- OUTSIDE RECORDS SUMMARY | 2024-12-27 19:28 | XMS_ITS | Clinical Summary ---
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 Gender Identity Not on file Sexual Orientation Not on file Plan of Treatment Health Maintenance Due Date Last Done Comments DTAP/TDAP/TD VACCINES (1 - Tdap) 02/12/1975 BREAST CANCER SCREENING 1996 COLORECTAL SCREENING 02/12/2001 Colorectal Cancer Screening 02/12/2001 FIT-DNA Q 3 years 02/12/2001 FIT/FOBT Q 1 year 02/12/2001 Flex Sig/CT Colonography Q 5 years 02/12/2001 PNEUMOCOCCAL VACCINE 50+ YEARS (1 of 1 - PCV) 02/13/20 06 ZOSTER VACCINE (1 of 2) 02/12/2006 OSTEOPOROSIS SCREENING 02/12/2021 INFLUENZA VACCINE (#1) 2024 RSV VACCINE (60+ or ) (1 - 1-dose 75+ series) 02/12/2031 Care Teams Tissue Coordinator Relationship Specialty Start Date End Date [facility], External Provider [address] [place] [address] PCP - General 06/26/10
--- OUTSIDE RECORDS SUMMARY | 2024-12-27 19:28 | XMS_ITS | Encounter Summary ---
Author Organization [facility] Address [address] [place] [address] Care Team Providers Care Workday Consultant Name Role Phone Alessandro Delaney MD Unavailable [phone] Elaine Bunn Primary Care Provider [phone] Naeved Green MD Unavailable [phone] Encounter Details Date Type Department Care Team (Late st Contact Info) Description 11/27/2024 Results Follow-Up [facility] [address] [address] Alessandro Delaney MD [facility] [address] [address] SCAN - RADIOLOGY/IMAGING Social History Tobacco Use Types Packs/Day Years [...] on file 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 Gender Identity Not on file Sexual Orientation Not on file documented as of this encounter Plan of Treatment Upcoming Encounters Date Type Department Care Team (Latest Contact Info) Description 01/16/2025 8:30 AM CDT Hospital Encounter [facility] [address] [place] [address] [place] [address] [place] [address] 01/16/2025 8:30 AM CDT - 01/16/2025 1:25 PM CDT Surgery [facility] [address] [place] [address] [place] [id number] [place] [address] 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
[2024-12-27 19:44] VITALS: BP 141/63; PULSE 83; RESP 18; TEMP 36.2; O2SAT 98
== END 2024-12-27 19:55 | disposition home or self-care (01) ==
PROVIDERS: Emergency Provider Nurse Practitioner Family; PCP Physician Assistant Medical
DX: S83.422A Sprain of lateral collateral ligament of left knee, initial encounter (principal); X50.1XXA Overexertion from prolonged static or awkward postures, initial encounter; E11.9 Type 2 diabetes mellitus without complications; Z79.85 Long-term (current) use of injectable non-insulin antidiabetic drugs; E03.9 Hypothyroidism, unspecified; I10 Essential (primary) hypertension; E78.00 Pure hypercholesterolemia, unspecified; J45.909 Unspecified asthma, uncomplicated; E55.9 Vitamin D deficiency, unspecified; Z85.3 Personal history of malignant neoplasm of breast; Z90.10 Acquired absence of unspecified breast and nipple
CPT/HCPCS: 73564; 99213; G0463